=== PATIENT | female | born 1955 | race Caucasian/White ===

== ENCOUNTER → 2016-08-09 | Outpatient (CLI) | payer OTHER ==
[~2016-08-09] MED LIST: ALBU1AER9 INH; ALBUAER INH; ALPR-385 PO; AMPH20TA2 PO; AMPH30TA2 PO; ASCO10003 PO; CYCL10TA6 PO; CYM60 PO; DOXY100C2 PO; EPP3/2 IM; FRCT/ PO; GABA1CAP4 PO; LVQ750 PO; NRT/25 PO; ONDA8TAB6 PO; OXYC1TAB3 PO; PRED20TA PO; RXC/5 PO; S AD PO; ULT50X PO; VLM5CL PO
== END | disposition home or self-care (01) ==
LOC: C.LABSPEC 17:57
PROVIDERS: ATTEND Nurse Practitioner Adult Health
DX: N39.0 Urinary tract infection, site not specified (principal)

== ENCOUNTER → 2016-09-27 | Outpatient (CLI) | payer OTHER | END | disposition home or self-care (01) | LOC: C.LABSPEC 17:06 | PROVIDERS: ATTEND Nurse Practitioner Adult Health | DX: N39.0 Urinary tract infection, site not specified (principal) ==

== ENCOUNTER 2016-11-25 14:01 | Inpatient (IN) | payer OTHER ==
[~2016-11-25] VITALS: Ht 160 cm; Wt 66.0 kg
[~2016-11-25 14:01] MED LIST changes: -ALBUAER INH; -AMPH20TA2 PO; -LVQ750 PO; -ONDA8TAB6 PO; -OXYC1TAB3 PO; -RXC/5 PO
[2016-11-25] MEDS ORDERED: OXYC1TAB3 PO (14:53)
[2016-11-25] MEDS ORDERED: AMPH20TA2 PO (14:53)
[2016-11-25] MEDS ORDERED: ONDA8TAB6 PO (14:53)
--- NOTE | 2016-11-25 15:24 | EMERGENCY ROOM VISIT NOTE ---
History Report prepared by Jorden: David Hopkins Under the Supervision of: Dr. Odalis Ramos D.O. First contact with patient: 14:37 Chief Complaint: ANKLE PAIN Stated Complaint: LEFT ANKLE PROBLEMS, MUSCLE SPASMS History of Present Illness The patient is a 61 year old female who presents to the Emergency Room with complaints of persistent left ankle pain beginning about 9 hours ago. She notes she woke up around 0630 this morning to use the bathroom when her hands began shaking. Khan states she has had shakes and tremors before. She reports spilling water on the floor, losing her balance and inverting her ankle, causing her to fall to the floor. The patient complains of pain on the lateral aspect of her left ankle. She also reports having a cough, and admits to smoking. The patient adds having back pain, and was last at physical therapy 2 days ago for this pain and neck pain. She had an EMG by Dr. Greco 5 days ago. Per the son, her current neuro state is not baseline, and he describes her as "discombobulated". This has happened before but not to this extent. He notes her current word searching is abnormal and new. Her inability to recall the date is also abnormal and new. Source of History: patient, family Onset: about 9 hours ago Position: ankle (left) Quality: other (ankle pain) Timing: other (persistent) Associated Symptoms: + back pain, + cough Review of Systems See HPI for pertinent positives & negatives. A total of 10 systems reviewed and were otherwise negative. Past Medical & Surgical Medical Problems: (1) Adenomatous polyp of colon (2) Chronic pain (3) Clostridium difficile colitis (4) Diverticulosis Colon (W/O Ment Of Hemorrhage) (5) Migraine (6) Spinal Stenosis-Lumbar (7) Tobacco user Surgical Problems: (1) s/p lap cholecystectomy (2) Spinal surgery Family History Patient reports no known family medical history. Social History Smoking Status: Unknown if Ever Smoked Alcohol Use: occasionally Drug Use: none Marital Status: single Housing Status: lives with family Occupation Status: retired Current/Historical Medications Scheduled Amphetamine-Dextroamphetamine 20MG (Adderall 20MG), 20 MG PO BID Ascorbic Acid (Vitamin C), 1 TAB PO DAILY Duloxetine HCl (Duloxetine HCl), 60 MG PO HS Gabapentin (Gabapentin), 600 MG PO BID Nortriptyline Hcl (Pamelor), 3 CAP PO HS S-Adenosylmethionine (Giorgio-E), 1 TAB PO DAILY Scheduled PRN Acetamin/Butalbital/Caffeine (Fioricet), 1 TAB PO Q6H PRN for Headache Albuterol Sulfate (Proventil Hfa), 2 PUFFS INH Q4H PRN for ob/wheeze Alprazolam (Xanax), 1 MG PO BID PRN for Anxiety Cyclobenzaprine Hcl (Flexeril), 10 MG PO TID PRN for Muscle Spasms Epinephrine (Epipen 2-Jorge), 0.3 MG IM UD PRN for ALLERGIC REACTION Ondansetron Hcl (Zofran), 8 MG PO TID PRN for Nausea Tramadol HCl (Tramadol HCl), 50 MG PO Q6 PRN for Pain Allergies Coded Allergies: Baclofen (Verified Allergy, Severe, Confusion, 11/25/16) Reported by PT Neomycin (Verified Allergy, Intermediate, Unsure, 11/25/16) Macrolides (Verified Allergy, Unknown, 11/25/16) Penicillins (Verified Allergy, Unknown, 11/25/16) Physical Exam Vital Signs Date Time Temp Pulse Resp B/P Pulse Ox O2 Delivery O2 Flow Rate FiO2 11/25/16 17:38 94 18 117/77 95 Room Air 11/25/16 16:45 90 18 116/75 97 Nasal Cannula 11/25/16 14:06 37.1 94 18 183/131 86 Room Air Physical Exam HEENT: Head - normocephalic and atraumatic. Pupils are equal, round, and reactive to light. Extraocular eye muscles are intact and sclera are anicteric. Ears - bilaterally patent canals with noninjected tympanic membranes and no evidence of hemotympanum. Nose - moist nasal mucosa without discharge. Mouth - moist buccal mucosa. Oropharynx is nonerythematous and there is no tonsillar exudate or edema noted. Neck: Supple; no JVD, nuchal rigidity, cervical lymphadenopathy, or auscultated bruits. Heart: Regular rate and rhythm. There is a normal S1 and S2 with no murmurs, clicks, or gallops appreciated. Lungs: Clear to auscultation bilaterally with no wheezes, rales, or rhonchi. Abdomen: Soft, completely nontender, nondistended, with good bowel sounds. There are no palpable pulsatile masses or hepatosplenomegaly. There is no guarding, rigidity, or rebound noted. Extremities: Ecchymosis of the base of the left fifth metatarsal and just anterior to the lateral malleolus. There are easily palpable peripheral pulses. Neuro:The patient is awake and alert, oriented to place, no oriented to date. Muscle strength is 5/5 in all 4 extremities. The patient has equal blasting contract man strength and equal pedal push and pull. There are no cerebellar signs. The patient seems to move around the bed and a bizarre way. She is tremulous. Medical Decision & Procedures ER Provider Diagnostic Interpretation: Radiology results as stated below per my review and the radiologist's interpretation: HEAD CT NONCONTRAST Findings: The paranasal sinuses and mastoid air cells are clear. The calvarium and skull base are intact. The ventricles and sulci are within normal limits. There is no mass, hematoma, midline shift, or acute infarct. Impression: No acute intracranial abnormality. Electronically signed by: Ezio Taylor M.D. 11/25/2016 4:29 PM Dictated Date/Time: 11/25/2016 4:27 PM CHEST 2 VIEWS ROUTINE FINDINGS: Mild diffuse interstitial thickening, unchanged. The lungs remain mildly hyperexpanded. No new focal lung consolidations. The heart is stable in size. No pleural effusions. No pneumothorax. Cholecystectomy. Lumbar spinal fusion hardware. Old right clavicle fracture. IMPRESSION: No significant change compared to the prior study. No acute process. Electronically signed by: Ezio Taylor M.D. 11/25/2016 5:00 PM Dictated Date/Time: 11/25/2016 4:57 PM LEFT FOOT MIN 3 VIEWS ROUTINE, LEFT ANKLE MIN 3 VIEWS ROUTINE FINDINGS: No acute fracture or dislocation within the left ankle. Transverse fracture within the base of the fifth metatarsal which extends to the intertarsal region. Therefore, this is consistent with a Sanford fracture. This is nondisplaced. IMPRESSION: Nondisplaced fracture at the base of the fifth metatarsal consistent with a Sanford fracture. No fractures within the left ankle. Electronically signed by: Ezio Taylor M.D. 11/25/2016 4:57 PM Dictated Date/Time: 11/25/2016 4:54 PM LEFT FOOT MIN 3 VIEWS ROUTINE, LEFT ANKLE MIN 3 VIEWS ROUTINE FINDINGS: No acute fracture or dislocation within the left ankle. Transverse fracture within the base of the fifth metatarsal which extends to the intertarsal region. Therefore, this is consistent with a Sanford fracture. This is nondisplaced. IMPRESSION: Nondisplaced fracture at the base of the fifth metatarsal consistent with a Sanford fracture. No fractures within the left ankle. Electronically signed by: Ezio Taylor M.D. 11/25/2016 4:57 PM Dictated Date/Time: 11/25/2016 4:54 PM Laboratory Results Test 11/25/16 17:00 Immature Granulocyte % (Auto) 0.5 % White Blood Count 15.25 K/uL (4.8-10.8) Red Blood Count 4.14 M/uL (4.2-5.4) Hemoglobin 13.9 g/dL (12.0-16.0) Hematocrit 41.8 % (37-47) Mean Corpuscular Volume 101.0 fL (80-100) Mean Corpuscular Hemoglobin 33.6 pg (25-34) Mean Corpuscular Hemoglobin Concent 33.3 g/dl (32-36) Platelet Count 219 K/uL (130-400) Neutrophils (%) (Auto) 77.4 % Lymphocytes (%) (Auto) 16.2 % Monocytes (%) (Auto) 5.6 % Eosinophils (%) (Auto) 0.1 % Basophils (%) (Auto) 0.2 % Neutrophils # (Auto) 11.81 K/uL (1.4-6.5) Lymphocytes # (Auto) 2.47 K/uL (1.2-3.4) Monocytes # (Auto) 0.85 K/uL (0.11-0.59) Eosinophils # (Auto) 0.01 K/uL (0-0.5) Basophils # (Auto) 0.03 K/uL (0-0.2) Immature Granulocyte # (Auto) 0.08 K/uL (0.00-0.02) Prothrombin Time 9.8 SECONDS (9.0-12.0) Prothromb Time International Ratio 0.9 (0.9-1.1) Activated Partial Thromboplast Time 30.5 SECONDS (21.0-31.0) Partial Thromboplastin Ratio 1.2 Osmolality 295 mOsm/kg (280-300) Total Bilirubin 0.2 mg/dl (0.2-1) Aspartate Amino Transf (AST/SGOT) 21 U/L (15-37) Alanine Aminotransferase (ALT/SGPT) 23 U/L (12-78) Alkaline Phosphatase 115 U/L (45-117) Total Protein 7.6 gm/dl (6.4-8.2) Albumin 3.8 gm/dl (3.4-5.0) Globulin 3.8 gm/dl (2.5-4.0) Albumin/Globulin Ratio 1.0 (0.9-2) Thyroid Stimulating Hormone (TSH) 0.742 uIu/ml (0.300-4.500) Laboratory results per my review. Procedure IV lock initiation IV normal saline hydration ECG Indication: other (ankle pain) Rate (beats per minute): 93 Rhythm: normal sinus Findings: no acute ischemic change, no ectopy ED Course 1508: Past medical records reviewed. The patient was evaluated in room A4B. A complete history and physical exam was performed. An IV lock was initiated and labs are drawn as above. The patient went for CT scan of the brain as described above. 1656: I reassessed the patient. She had a chest x-ray because she was noted to be hypoxic. . She also had an x-ray of her left foot as described above. 1725: Discussed the patient's case Dr. Mora. The patient will be evaluated for further management. 1750: The patient's chemistries came back and she appears to be in renal failure with a creatinine of 6.3. She was placed on IV normal saline therapy. I discussed the case with the patient as well as Dr. Mora Medical Decision The patient is a 61 year old female who presents to the Emergency Room with complaints of persistent left ankle pain beginning about 9 hours ago. Differential Diagnoses: Ankle fracture, 5th metatarsal fracture, pneumonia, acute stroke, and head bleed. Laboratory Interpretations: White count of 15.2; stable H&H; creatinine 6.3; BUN is 62; TSH is 0.7; LFTs are normal. Patient suffered an injury to her left ankle during an inversion injury earlier today. However, the patient's mental status seems to be altered according to the patient and her son. CT scan of the brain was unremarkable. The patient was noted to be hypoxic during her emergency department stay. She was placed in supplemental oxygen. Chest x-ray was obtained. Unfortunately the patient' s creatinine has drastically elevated to 6.3. This is consistent with acute renal failure. Patient has a fifth metatarsal fracture. She was placed in a postop shoe. I discussed the case with the [facility] Hospitalist and they will evaluate for further management. Consults Time Called: 1655 Consulting Physician: Dr. Mora natividad Returned Call: 1725 Discussed the patient's case Dr. Mora. The patient will be evaluated for further management. Impression Primary Impression: Acute renal failure (ARF) Additional Impressions: Hypoxia Altered mental status Fracture of fifth metatarsal bone of left foot Scribe Attestation The scribe's documentation has been prepared under my direction and personally reviewed by me in its entirety. I confirm that the note above accurately reflects all work, treatment, procedures, and medical decision making performed by me. Departure Information Dispostion Being Evaluated By Hospitalist Referrals No Doctor, Assigned (PCP) Patient Instructions [facility] Problem Qualifiers
--- NOTE | 2016-11-25 16:31 | DIAGNOSTIC IMAGING REPORT ---
HEAD CT NONCONTRAST CT DOSE: 614.27 mGy.cm HISTORY: Fall. Head injury. Altered mental status. TECHNIQUE: Multiaxial CT images of the head were performed without the use of intravenous contrast. Automated exposure control was utilized for this study. Comparison: Head CT 08/20/2015. Findings: The paranasal sinuses and mastoid air cells are clear. The calvarium and skull base are intact. The ventricles and sulci are within normal limits. There is no mass, hematoma, midline shift, or acute infarct. Impression: No acute intracranial abnormality. Electronically signed by: Ezio Taylor M.D. 11/25/2016 4:29 PM Dictated Date/Time: 11/25/2016 4:27 PM
--- NOTE | 2016-11-25 16:58 | DIAGNOSTIC IMAGING REPORT ---
LEFT FOOT MIN 3 VIEWS ROUTINE, LEFT ANKLE MIN 3 VIEWS ROUTINE CLINICAL HISTORY: Left ankle and left foot pain. COMPARISON STUDY: None. FINDINGS: No acute fracture or dislocation within the left ankle. Transverse fracture within the base of the fifth metatarsal which extends to the intertarsal region. Therefore, this is consistent with a Sanford fracture. This is nondisplaced. IMPRESSION: Nondisplaced fracture at the base of the fifth metatarsal consistent with a Sanford fracture. No fractures within the left ankle. Electronically signed by: Ezio Taylor M.D. 11/25/2016 4:57 PM Dictated Date/Time: 11/25/2016 4:54 PM
--- NOTE | 2016-11-25 17:01 | DIAGNOSTIC IMAGING REPORT ---
CHEST 2 VIEWS ROUTINE HISTORY: cough/smoker COMPARISON: Chest 04/17/2016. FINDINGS: Mild diffuse interstitial thickening, unchanged. The lungs remain mildly hyperexpanded. No new focal lung consolidations. The heart is stable in size. No pleural effusions. No pneumothorax. Cholecystectomy. Lumbar spinal fusion hardware. Old right clavicle fracture. IMPRESSION: No significant change compared to the prior study. No acute process. Electronically signed by: Ezio Taylor M.D. 11/25/2016 5:00 PM Dictated Date/Time: 11/25/2016 4:57 PM
[2016-11-25 17:22] LABS: BASO % 0.2 %; BASO ABS # 0.03 K/uL (0-0.2); COMPLETE YES; EOS % 0.1 %; HEMATOCRIT 41.8 % (37-47); IG% 0.5 %; LYMPH % 16.2 %; LYMPH ABS # 2.47 K/uL (1.2-3.4); MEAN CORPUSCULAR HEMOGLOBIN 33.6 pg (25-34); MEAN CORPUSCULAR HGB CONC 33.3 g/dl (32-36); MONO % 5.6 %; NEUT % 77.4 %; PLATELET COUNT 219 K/uL (130-400); RED BLOOD COUNT 4.14 M/uL (4.2-5.4); WHITE BLOOD COUNT 15.25 K/uL (4.8-10.8)
[2016-11-25 17:47] LABS: BUN/CREATININE RATIO 9.8 (10-20); CALCIUM 8.9 mg/dl (8.5-10.1); CREATININE 6.3 mg/dl (0.60-1.20); POTASSIUM 4.5 mmol/L (3.5-5.1); THYROID STIMULATING HORMONE 0.742 uIu/ml (0.300-4.500)
[2016-11-25] MEDS ORDERED: ALBUAER INH (18:43)
[2016-11-25] MEDS ORDERED: ACETAMINOPHEN 325 MG TAB PO PRN (19:00)
[2016-11-25] MEDS ORDERED: ALBUT/IPRATROP 3MG/0.5MG NEB 3 ML VIAL INH PRN (19:00)
[2016-11-25] MEDS ORDERED: ONDANSETRON INJ 2 MG/ML 2 ML VIAL IV PRN (19:00)
[2016-11-25] MEDS ORDERED: ALPRAZOLAM 0.5 MG TAB PO PRN (19:15)
[2016-11-25] MEDS ORDERED: TRAMADOL HCL 50 MG TAB PO PRN (19:15)
[2016-11-25] MEDS ORDERED: CYCLOBENZAPRINE HCL 10 MG TAB PO PRN (19:15)
--- NOTE | 2016-11-25 19:39 | History and Physical ---
History & Physical Date & Time of Service: Nov 25, 2016 at 19:01 Chief Complaint: Left Ankle Problems, Muscle Spasms Primary Care Physician: Thomas Stokes M.D. History of Present Illness Source: patient, family, clinic records, hospital records Patient seen and examined. 61 year old female with PMHx of tobacco abuse, depression, chronic back pain, and currently being workedup for a movement disorder presents to the ED complaining of left ankle pain following a fall this morning. Patient reports that her her "muscle twitching" was worse than normal this morning. She states she was trying to get a glass of water but spilled it all over the floor d/t uncontrolled movements. She states she then rolled her left ankle when she step in the water and fell to the ground. She tried to use her cell phone to call her son to help her but had difficulty using the phone because of her muscle twitching. She then realized that she couldn't remember her son's phone number to dial it. She states she eventually got a hold of him and he brought her to the ED for further evaluation. He reports that the patient is very different from baseline and having issues with word finding and confusion that she has never had before. Patient also complaining of a cough and congestion. She states she is unable to cough up sputum but she feels it is there. She feels a little more SOB than baseline. She states she has been taking Mucinex for this. She also reports urinary issues. She states d/t her chronic back pain when she has back pain she has urinary retention. She states she has not urinated since yesterday. She states when she does go it is dark urine. She reports that she takes Ibuprofen 600mg TID for the back pain. She denies fevers, chills, chest pain, nausea, vomiting, diarrhea, calf pain and edema. She denies head trauma and LOC. She is currently seeing Dr. Greco to be worked up for a movement disorder and had an EMG as an outpatient. She states she did not take her medications today. In the ED patient was initially hypertensive but BP has normalized with out intervention. She is hypoxic on RA. She has a WBC count of 15K, and her crea is 6.3. She also has a left 5th metatarsal fracture. She will be admitted for further workup and treatment. Past Medical/Surgical History Medical Problems: (1) Adenomatous polyp of colon Status: Resolved (2) Chronic pain Status: Chronic (3) Clostridium difficile colitis Status: Resolved (4) Diverticulosis Colon (W/O Ment Of Hemorrhage) Status: Chronic (5) Migraine Status: Chronic (6) Spinal Stenosis-Lumbar Status: Chronic (7) Tobacco user Status: Chronic Surgical Problems: (1) s/p lap cholecystectomy Status: Resolved (2) Spinal surgery Status: Resolved Family History Patient reports no known family medical history. Social History Smoking Status: Current Every Day Smoker Alcohol Use: none Drug Use: none Marital Status: single Housing status: lives alone Occupational Status: retired Immunizations History of Influenza Vaccine: No History of Tetanus Vaccine?: No History of Pneumococcal: Yes Pneumococcal Date: Nov 17, 2008 History of Hepatitis B Vaccine: No Multi-Drug Resistant Organisms History of MDRO: No Allergies Coded Allergies: Baclofen (Verified Allergy, Severe, Confusion, 11/25/16) Reported by PT Neomycin (Verified Allergy, Intermediate, Unsure, 11/25/16) Macrolides (Verified Allergy, Unknown, 11/25/16) Penicillins (Verified Allergy, Unknown, 11/25/16) Home Medications Scheduled Amphetamine-Dextroamphetamine 20MG (Adderall 20MG), 20 MG PO BID Ascorbic Acid (Vitamin C), 1 TAB PO DAILY Duloxetine HCl (Duloxetine HCl), 60 MG PO HS Gabapentin (Gabapentin), 600 MG PO BID Nortriptyline Hcl (Pamelor), 3 CAP PO HS S-Adenosylmethionine (Giorgio-E), 1 TAB PO DAILY Scheduled PRN Acetamin/Butalbital/Caffeine (Fioricet), 1 TAB PO Q6H PRN for Headache Albuterol Sulfate (Proventil Hfa), 2 PUFFS INH Q4H PRN for ob/wheeze Alprazolam (Xanax), 1 MG PO BID PRN for Anxiety Cyclobenzaprine Hcl (Flexeril), 10 MG PO TID PRN for Muscle Spasms Epinephrine (Epipen 2-Jorge), 0.3 MG IM UD PRN for ALLERGIC REACTION Ondansetron Hcl (Zofran), 8 MG PO TID PRN for Nausea Tramadol HCl (Tramadol HCl), 50 MG PO Q6 PRN for Pain Review of Systems Constitutional: No chills, No fever, No weight loss Eyes: No worsening of vision ENT: + nasal symptoms Respiratory: + cough, + shortness of breath, + sputum, + wheezing Cardiovascular: No chest pain, No edema, No palpitations Abdomen: No constipation, No diarrhea, No nausea, No pain, No vomiting Musculoskeletal: + joint pain, + muscle pain, No calf pain, No swelling Genitourinary - Female: + urinary retention, No dysuria Neurologic: + balance problems, + problem reported (involuntary movements ), No numbness/tingling, No vertigo Psychiatric: No anxiety, No insomnia Endocrine: No fatigue Hematologic / Lymphatic: No abnormal bleeding/bruising, No clotting problems Integumentary: No itch, No rash Allergic / Immunologic: No environmental allergies Physical Exam Vital Signs Date Time Temp Pulse Resp B/P Pulse Ox O2 Delivery O2 Flow Rate FiO2 11/25/16 17:38 94 18 117/77 95 Room Air 11/25/16 16:45 90 18 116/75 97 Nasal Cannula 11/25/16 14:06 37.1 94 18 183/131 86 Room Air General Appearance: + pertinent finding (WD/WN 61 year old female lying in bed in NAD with son at bedside ) Head: normocephalic, atraumatic Eyes: PERRL, EOMI, sclerae normal ENT: hearing grossly normal, pharynx normal Neck: supple, no JVD Respiratory/Chest: chest non-tender, no respiratory distress, no accessory muscle use, + rhonchi, + wheezing, + pertinent finding (coarse breath sounds throughout ) Cardiovascular: regular rate, rhythm, no edema, no gallop, no JVD, no murmur, normal peripheral pulses Abdomen/GI: normal bowel sounds, non tender, soft Back: normal inspection, no CVA tenderness Extremities/Musculoskelatal: no calf tenderness, normal capillary refill, no pedal edema Neurologic/Psych: + pertinent finding (A&Ox3, some word finding and recall issues,tangential speech, tremor noted, appears restless possibly some involuntary movements ) Skin: normal color, warm/dry, no rash Lymphatic: no adenopathy Diagnostics Laboratory Results Results Past 24 Hours Test 11/25/16 17:00 11/25/16 18:34 Range/Units White Blood Count 15.25 4.8-10.8 K/uL Red Blood Count 4.14 4.2-5.4 M/uL Hemoglobin 13.9 12.0-16.0 g/dL Hematocrit 41.8 37-47 % Mean Corpuscular Volume 101.0 80-100 fL Mean Corpuscular Hemoglobin 33.6 25-34 pg Mean Corpuscular Hemoglobin Concent 33.3 32-36 g/dl Platelet Count 219 130-400 K/uL Neutrophils (%) (Auto) 77.4 % Lymphocytes (%) (Auto) 16.2 % Monocytes (%) (Auto) 5.6 % Eosinophils (%) (Auto) 0.1 % Basophils (%) (Auto) 0.2 % Neutrophils # (Auto) 11.81 1.4-6.5 K/uL Lymphocytes # (Auto) 2.47 1.2-3.4 K/uL Monocytes # (Auto) 0.85 0.11-0.59 K/uL Eosinophils # (Auto) 0.01 0-0.5 K/uL Basophils # (Auto) 0.03 0-0.2 K/uL Immature Granulocyte % (Auto) 0.5 % Immature Granulocyte # (Auto) 0.08 0.00-0.02 K/uL Sodium Level 135 136-145 mmol/L Potassium Level 4.5 3.5-5.1 mmol/L Chloride Level 102 98-107 mmol/L Carbon Dioxide Level 21 21-32 mmol/L Anion Gap 12.0 3-11 mmol/L Blood Urea Nitrogen 62 7-18 mg/dl Creatinine 6.30 0.60-1.20 mg/dl Est Creatinine Clear Calc Drug Dose 8.3 ml/min Estimated GFR () 7.6 Estimated GFR (Non- 6.5 BUN/Creatinine Ratio 9.8 10-20 Random Glucose 135 70-99 mg/dl Calcium Level 8.9 8.5-10.1 mg/dl Total Bilirubin 0.2 0.2-1 mg/dl Aspartate Amino Transf (AST/SGOT) 21 15-37 U/L Alanine Aminotransferase (ALT/SGPT) 23 12-78 U/L Alkaline Phosphatase 115 45-117 U/L Total Protein 7.6 6.4-8.2 gm/dl Albumin 3.8 3.4-5.0 gm/dl Globulin 3.8 2.5-4.0 gm/dl Albumin/Globulin Ratio 1.0 0.9-2 Thyroid Stimulating Hormone (TSH) 0.742 0.300-4.500 uIu/ml Diagnostic Radiology L FOOT XR Per radiologist read: IMPRESSION: Nondisplaced fracture at the base of the fifth metatarsal consistent with a Sanford fracture. No fractures within the left ankle. LEFT ANKLE XR Per radiologist read: IMPRESSION: Nondisplaced fracture at the base of the fifth metatarsal consistent with a Sanford fracture. No fractures within the left ankle. CXR Per radiologist read: IMPRESSION: No significant change compared to the prior study. No acute process. CT HEAD Per radiologist read: Impression: No acute intracranial abnormality. EKG NSR, incomplete RBBB 93 BPM, QTc 405 Impression Assessment and Plan 61 year old female presented to the ED complaining of left ankle pain, found to have Sanford fracture. Patient was also hypoxic and appeared to be altered. CT head was done and negative. Lab work revealed a crea of 6.3 and leukocytosis . ACUTE RENAL FAILURE -Admit to tele -? cause patient reports chronic NSAID use 600mg TID regularly, also reports urinary retention, ? obstruction, ? dehydration and other etiologies -Crea 6.3, BUN 62, last lab work over 1 year ago and normal -Lytes stable -Does appear slightly hypovolemic, will gently hydrate with IVFs -hold NSAIDs, avoid other nephrotoxic agents -Renal US pending to r/o obstruction -check UA, urine sodium,crea, osm -Nephrology consult placed for further input -CBC, PRP, Mg in AM ACUTE HYPOXIA -Sats in the 80s on RA, CXR without consolidation, WBC count 15K -Reports ongoing cough, congestion, SOB -Likely acute bronchitis with possible underlying COPD in setting of continued tobacco abuse -Check ABG -Empirically treat with Doxycycline po -Prednisone 40mg po daily -Duonebs prn -supplemental oxygen as need -CBC in AM ALTERED MENTAL STATUS -CT head negative -? secondary to hypoxia, uremia, infection, polypharmacy and other etiologies -Check ABG to r/o CO2 retention -Empirically treat for acute bronchitis -ARF management as outlined above -Will continue home medications for now to avoid withdrawal likely will need multispecialty team effort to deescalate medications LEFT 5TH METATARSAL FRACTURE -continue with Boot -Orthopedic consult placed for further management regarding weight baring status etc -once okay with ortho will order PT/OT URINARY RETENTION -Has seen [facility] in the past and had urodynamics completed -Straight cath with 600cc urine output -UA pending -Urology consult for further workup MOVEMENT DISORDER -Follows with Dr. Greco -fall precautions -had recent EMGs unsure of results -consult placed for further management CHRONIC BACK PAIN -Continue Flexeril, Oxycodone, Tramadol, Gabapentin MOOD DISORDER -continue Cymbalta, Nortriptyline, Adderall, Xanax TOBACCO ABUSE -Cessation counseling given DVT PROPHYLAXIS: Sq heparin CODE STATUS: FULL CODE DISPO:In my clinical judgment this beneficiary meets acute admission criteria, established by [facility], that includes being hospitalized through two midnights. Patient seen in collaboration with Dr. Mora VTE Prophylaxis VTE Risk Assessment Done? Y/N: Yes Risk Level: Moderate Given or contraindicated: Unfractionated heparin SQ Note ATTENDING ADDENDUM Record reviewed. Patient interviewed and examined in ED. Care coordinated with Molly Fleming PA-C. Please refer to her documentation for patient's history. Briefly, 61 YO female with history of chronic pain, migraine headaches, and other problems as noted. Takes ibuprofen for chronic pain. Undergoing neuro evaluation for severe tremors. Recent falls due to weakness and poor balance. Fell and injured her left foot. Has been somewhat confused and has had a cough with chest congestion. Recent problems with voiding. Has been seen by Urology. Urodynamic testing performed in clinic. EXAM: General- no acute distress VS- as noted Head- atraumatic Eyes- PERRL, EOMI; anicteric ENT- oral mucosa dry Neck- supple; no JVD Lungs- bilateral rhonchi, diffuse wheezing Heart- RRR, no murmur, gallop, or rub appreciated Abdomen- + BS, soft, nontender Extremities- no pretibial edema or calf tenderness; ecchymosis and tenderness left foot Neuro- alert, somewhat confused, somewhat tangential; resting tremor; motor strength grossly intact; plantar reflexes downgoing DATA: Lab studies as noted. CXR- no infiltrates or CHF. X-ray left foot- nondisplaced fracture left fifth metatarsal. CT head- neg. EKG performed at 15:28 reviewed and demonstrated NSR at 90 / minute, incomplete RBBB inverted T-waves III. . ASSESSMENT AND PLAN: ACUTE KIDNEY INJURY Serum creatinine 6. ROXANNE, etiology uncertain. No acute need for hemodialysis. Utilizes ibuprofen on regular basis- DC all NSAID's. Urinary retention- consider obstructive uropathy. Check FE Na and renal US. Consult Nephrology. URINARY RETENTION Has had problems with urinary retention, evaluated by [facility]. 600 ml urine per straight cath in ED. Check renal US. Consult Urology. POSSIBLE UTI Urine cloudy in ED. Experiencing urinary retention, but no dysuria. Afebrile. WBC 15,000. Check urine C&S. Allergic to penicillins and nitrofurantoin. Rx with levofloxacin pending cultures. TREMOR / CONFUSION ? due to uremia. Has seen [facility] Neurology and had recent EMG- ? results. Consult Neuro. LEFT 5th METATARSAL FRACTURE Consult Ortho. AMBULATORY DYSFUNCTION PT / OT evals. POLYPHARMACOLOGY May be appropriate to try to taper meds, but will require coordination of care with all involved specialties. Please refer to CT Fleming's documentation for discussion of other issues. Stephen Mora MD .
[2016-11-25 20:00] LABS: ARTERIAL BLD GAS O2 SATURATION 91.7 % (90-95); ARTERIAL BLOOD GAS HCO3 20 mmol/L (19-24); ARTERIAL BLOOD GAS PO2 70 mm/Hg (80-95); ARTERIAL BLOOD GAS pH 7.26 (7.35-7.45)
[2016-11-25 20:05] LABS: URINE APPEARANCE TURBID (CLEAR); URINE BILIRUBIN NEG (NEG); URINE COLOR YELLOW; URINE NITRITE NEG (NEG); URINE PH 5.5 (4.5-7.5); URINE SPECIFIC GRAVITY 1.015 (1.000-1.030); UROBILINOGEN NEG (NEG); ZZURINE CULT IF INDIC CATH YES
[2016-11-25 20:05] LABS: ALLEN TEST POS (POS); O2 ADMINISTRATION 3%
[2016-11-25 20:06] LABS: MANUAL MICROSCOPIC REQUIRED? NO; REVIEW REQ? YES
[2016-11-25 21:00] VITALS: BP 161/89; PULSE 78; TEMP 37.1; O2SAT 97; Ht 160 cm; Wt 66.0 kg
[2016-11-25] MEDS ORDERED: AMPHETAMINE ASP/SULF/DEXTRAMPH 10 MG TAB PO SCH (21:00)
[2016-11-25] MEDS ORDERED: DOXYCYCLINE HYCLATE 100 MG CAP PO SCH (21:00)
[2016-11-25] MEDS ORDERED: NORTRIPTYLINE HCL 25 MG CAP PO SCH (21:00)
[2016-11-25] MEDS ORDERED: GABAPENTIN 600 MG TAB PO SCH (21:00)
[2016-11-25] MEDS ORDERED: DULOXETINE HCL 60 MG CAP PO SCH (21:00)
[2016-11-25 21:57] LABS: INR 0.9 (0.9-1.1); PARTIAL THROMBOPLASTIN RATIO 1.2; PROTHROMBIN TIME (PATIENT) 9.8 SECONDS (9.0-12.0)
[2016-11-25] MEDS: SODIUM CHLORIDE 0.9% 1000ML 1,000 ML IV SCH (22:36)
[2016-11-25 23:26] VITALS: BP 138/83; PULSE 97; TEMP 37.7; O2SAT 90
[2016-11-26] VITALS (11 sets, daily range): BP systolic 93–133; BP diastolic 61–82; PULSE 69–97; TEMP 36.4–37; O2SAT 90–96
[2016-11-26] MEDS: SODIUM CHLORIDE 0.9% 1000ML 1,000 ML IV SCH ×3 (05:54→19:50)
[2016-11-26] MEDS: HEPARIN SOD 5000 UNIT/0.5 ML CARP SQ SCH ×4 (05:55→22:00)
[2016-11-26] MEDS ORDERED: LEVOFLOXACIN IV SCH (06:00)
[2016-11-26] MEDS ORDERED: PREMIXED IV SCH (06:00)
[2016-11-26] MEDS ORDERED: D5W IV SCH (06:00)
[2016-11-26] MEDS ORDERED: [UNRECOGNIZED DRUG - OTHER] IV SCH (06:00)
[2016-11-26 06:03] LABS: HEMATOCRIT 39.3 % (37-47); MEAN CELL VOLUME 99.7 fL (80-100); MEAN CORPUSCULAR HEMOGLOBIN 33.2 pg (25-34); MEAN CORPUSCULAR HGB CONC 33.3 g/dl (32-36); MEAN PLATELET VOLUME 8.5 fL (7.4-10.4); PLATELET COUNT 204 K/uL (130-400); RED BLOOD COUNT 3.94 M/uL (4.2-5.4); WHITE BLOOD COUNT 11.09 K/uL (4.8-10.8)
[2016-11-26 06:52] LABS: BUN/CREATININE RATIO 10.7 (10-20); CALCIUM 8.6 mg/dl (8.5-10.1); CREATININE 5.8 mg/dl (0.60-1.20); MAGNESIUM 2.6 mg/dl (1.8-2.4); POTASSIUM 4.6 mmol/L (3.5-5.1)
[2016-11-26] MEDS ORDERED: LEVOFLOXACIN 750MG / D5W IV ONE (07:00)
--- NOTE | 2016-11-26 07:37 | DIAGNOSTIC IMAGING REPORT ---
RENAL ULTRASOUND CLINICAL HISTORY: Acute renal failure. COMPARISON STUDY: Renal ultrasound July 10, [address] of the abdomen and pelvis May 05, 2015. TECHNIQUE: Sonography of the kidneys and the urinary bladder was performed. FINDINGS: There is no hydronephrosis. Renal echogenicity is increased. The right kidney measures 10 x 5.4 x 4.3 cm and the left measures 9 x 4.5 x 4.4 cm. Renal cortical thickness and size are normal. Both ureteral jets were identified. IMPRESSION: 1. No hydronephrosis. 2. Increased renal echogenicity suggestive of medical renal disease. Electronically signed by: Nitin Ho M.D. 11/26/2016 7:36 AM Dictated Date/Time: 11/26/2016 7:35 AM
[2016-11-26] MEDS ORDERED: NURSING VERBAL MED ORDER ONE ×5 (08:03→08:30)
[2016-11-26] MEDS ORDERED: HALOPERIDOL LACTATE 5 MG/ML 1 ML VIAL ONE (08:03)
[2016-11-26] MEDS ORDERED: LORAZEPAM 2 MG/ML 1 ML VIAL ONE (08:16)
[2016-11-26] MEDS ORDERED: LORAZEPAM 2 MG/ML 1 ML VIAL IM ONE (08:30)
[2016-11-26] MEDS ORDERED: OLANZAPINE 10 MG/2.1 ML SDV IM ONE (08:30)
[2016-11-26] MEDS: ASCORBIC ACID 500 MG TAB PO SCH (09:00)
[2016-11-26] MEDS ORDERED: S ADENOSYLMETHIONINE PO SCH (09:00)
--- NOTE | 2016-11-26 09:09 | Progress Note ---
Medicine Progress Note Date & Time of Visit: Nov 26, 2016 at 08:54. Subjective patient apparently was apparently cooperative earlier until this morning when RN assessed her, patient was sleeping but when awoken, noted to be disoriented, then became agitated, combative, pulled out IV site code reynaldo called, at least 4 persons needed to hold patient given IM haldol, ativan, zyprexa patient gradually became calmer, but was still disoriented not in distress, speaks in sentences with no effort, no accessory muscle use denies dyspnea, chest pain, nausea, abdominal pain still has cough, non productive Objective Last 8 Hrs Date Time Temp Pulse Resp B/P Pulse Ox O2 Delivery O2 Flow Rate FiO2 11/26/16 07:56 94 118/65 11/26/16 07:39 36.4 76 18 93/61 90 2.0 11/26/16 04:06 37.0 97 17 128/77 90 Nasal Cannula 3.0 11/26/16 04:00 Nasal Cannula 3.0 Physical Exam: In my clinical judgment this beneficiary meets acute admission criteria, established by [facility], that includes being hospitalized through two midnights. Laboratory Results: Last 24 Hours Test 11/25/16 17:00 11/25/16 18:58 11/25/16 19:43 11/26/16 05:49 White Blood Count 15.25 K/uL 11.09 K/uL Red Blood Count 4.14 M/uL 3.94 M/uL Hemoglobin 13.9 g/dL 13.1 g/dL Hematocrit 41.8 % 39.3 % Mean Corpuscular Volume 101.0 fL 99.7 fL Mean Corpuscular Hemoglobin 33.6 pg 33.2 pg Mean Corpuscular Hemoglobin Concent 33.3 g/dl 33.3 g/dl Platelet Count 219 K/uL 204 K/uL Neutrophils (%) (Auto) 77.4 % Lymphocytes (%) (Auto) 16.2 % Monocytes (%) (Auto) 5.6 % Eosinophils (%) (Auto) 0.1 % Basophils (%) (Auto) 0.2 % Neutrophils # (Auto) 11.81 K/uL Lymphocytes # (Auto) 2.47 K/uL Monocytes # (Auto) 0.85 K/uL Eosinophils # (Auto) 0.01 K/uL Basophils # (Auto) 0.03 K/uL Immature Granulocyte % (Auto) 0.5 % Immature Granulocyte # (Auto) 0.08 K/uL Prothrombin Time 9.8 SECONDS Prothromb Time International Ratio 0.9 Activated Partial Thromboplast Time 30.5 SECONDS Partial Thromboplastin Ratio 1.2 Sodium Level 135 mmol/L 135 mmol/L Potassium Level 4.5 mmol/L 4.6 mmol/L Chloride Level 102 mmol/L 102 mmol/L Carbon Dioxide Level 21 mmol/L 20 mmol/L Anion Gap 12.0 mmol/L 13.0 mmol/L Blood Urea Nitrogen 62 mg/dl 62 mg/dl Creatinine 6.30 mg/dl 5.80 mg/dl Est Creatinine Clear Calc Drug Dose 8.3 ml/min 8.3 ml/min Estimated GFR () 7.6 8.3 Estimated GFR (Non- 6.5 7.2 BUN/Creatinine Ratio 9.8 10.7 Random Glucose 135 mg/dl 139 mg/dl Osmolality 295 mOsm/kg Calcium Level 8.9 mg/dl 8.6 mg/dl Total Bilirubin 0.2 mg/dl Aspartate Amino Transf (AST/SGOT) 21 U/L Alanine Aminotransferase (ALT/SGPT) 23 U/L Alkaline Phosphatase 115 U/L Total Protein 7.6 gm/dl Albumin 3.8 gm/dl Globulin 3.8 gm/dl Albumin/Globulin Ratio 1.0 Thyroid Stimulating Hormone (TSH) 0.742 uIu/ml Urine Color YELLOW Urine Appearance TURBID Urine pH 5.5 Urine Specific [place] 1.015 Urine Protein TRACE Urine Glucose (UA) NEG Urine Ketones NEG Urine Occult Blood NEG Urine Nitrite NEG Urine Bilirubin NEG Urine Urobilinogen NEG Urine Leukocyte Esterase MODERATE Urine WBC (Auto) >30 /hpf Urine RBC (Auto) 0-4 /hpf Urine Hyaline Casts (Auto) 0 /lpf Urine Epithelial Cells (Auto) 5-10 /lpf Urine Bacteria (Auto) 2+ Urine Crystals AMORPHOUS SEDIMENT Urine Osmolality 297 mOms/kg Urine Random Creatinine 140.0 mg/dl Urine Random Sodium 19 mEq/L Arterial Blood pH 7.26 Arterial Blood Partial Pressure CO2 45 mmHg Arterial Blood Partial Pressure O2 70 mm/Hg Arterial Blood HCO3 20 mmol/L Arterial Blood Oxygen Saturation 91.7 % Arterial Blood Base Excess -7.0 mEq/L Arterial Blood Gas Delivery 3% Michael Test POS RDW Standard Deviation 50.4 fL RDW Coefficient of Variation 13.8 % Mean Platelet Volume 8.5 fL Magnesium Level 2.6 mg/dl 25-Hydroxy Vitamin D Total 15.0 ng/ml Test 11/26/16 08:08 Bedside Glucose 128 mg/dl Date/Time Source Procedure Growth Status 11/25/16 18:58 Urine,Catheterized Urine Culture Pending Received Assessment & Plan 61 year old female with history of smoking, chronic back pain, mood disorder presenting with left foot pain. ACUTE RENAL FAILURE -? cause patient reports chronic NSAID use 600mg TID regularly, also reports urinary retention, ? obstruction, ? dehydration and other etiologies - renal us: 1. No hydronephrosis. 2. Increased renal echogenicity suggestive of medical renal disease. - crea 6.3 to 5.8 - (+) delirium this morning uremic encephalopathy? - continue IV fluids Nephrology consulted ACUTE HYPOXIC RESPIRATORY FAILURE, LIKELY FROM ACUTE COPD EXACERBATION FROM ACUTE BRONCHITIS - cxr: no signs of pneumonia - remains on 2 liters by DE - hold Levaquin as patient was delirious this AM - change to Doxycycline IV nebs hold Prednisone- no wheezing, delirious ALTERED MENTAL STATUS -CT head negative -? secondary to hypoxia, uremia, infection, polypharmacy and other etiologies - (+) acute delirious episode this AM from Psych meds in the setting of Acute renal failure? hold all Psych meds, other meds that may cause delirium, Psych consulted from Uremic Encephalopathy? from Underlying Infection- UTI, Bronchitis? urine culture, blood cultures, empiric Ceftri + Doxy - repeat CT head one to one obs for now LEFT 5TH METATARSAL FRACTURE -continue with Boot - ortho consulted URINARY RETENTION -Urology consult for further workup MOVEMENT DISORDER -Follows with Dr. Greco -fall precautions -had recent EMGs unsure of results -consult placed for further management CHRONIC BACK PAIN -usually on Flexeril, Oxycodone, Tramadol, Gabapentin -hold above secondary to acute delirium MOOD DISORDER -usually on Cymbalta, Nortriptyline, Adderall, Xanax - -hold above secondary to acute delirium TOBACCO ABUSE -Cessation counseling given DVT PROPHYLAXIS: Sq heparin CODE STATUS: FULL CODE DISPO: pending Current Inpatient Medications: Current Inpatient Medications Medications (Trade) Dose Ordered Sig/Mynor Route Start Time Stop Time Status Last Admin Dose Admin Heparin Sodium (Porcine) (Heparin Sq 5000 Unit/0.5ml) 5,000 unit Q8H SQ 11/26/16 06:00 12/26/16 05:59 Acetaminophen (Tylenol Tab) 650 mg Q4H PRN PO 11/25/16 19:00 12/25/16 18:59 Ondansetron HCl (Zofran Inj) 4 mg Q6H PRN IV 11/25/16 19:00 12/25/16 18:59 Prednisone (PredniSONE TAB) 40 mg DAILY PO 11/26/16 09:00 12/26/16 08:59 Albuterol/ Ipratropium 3 ml 3 ml Q4R PRN INH 11/25/16 19:00 12/25/16 18:59 Sodium Chloride (Nss 1000ml) 1,000 ml @ 100 mls/hr Q10H IV 11/25/16 19:15 12/25/16 19:14 11/26/16 05:54 100 MLS/HR Alprazolam (Xanax Tab) 1 mg BID PRN PO 11/25/16 19:15 12/25/16 19:14 Amphetamine Aspartate/ Amphetam Sulf (Amphetamine Aspartate/Amph Sulf/Dextramphet) 20 mg BID PO 11/25/16 21:00 12/09/16 20:59 Cyclobenzaprine HCl (Flexeril Tab) 10 mg TID PRN PO 11/25/16 19:15 12/25/16 19:14 11/25/16 22:42 10 MG Duloxetine HCl (Cymbalta Cap) 60 mg HS PO 11/25/16 21:00 12/25/16 20:59 11/25/16 22:42 60 MG Gabapentin (Neurontin Tab) 600 mg BID PO 11/25/16 21:00 12/25/16 20:59 11/25/16 22:40 600 MG Nortriptyline HCl (Pamelor Cap) 75 mg HS PO 11/25/16 21:00 12/25/16 20:59 11/25/16 22:41 75 MG Tramadol HCl (Ultram Tab) 50 mg Q6 PRN PO 11/25/16 19:15 12/25/16 19:14 Ascorbic Acid 1000 mg 1,000 mg DAILY PO 11/26/16 09:00 12/26/16 08:59 Levofloxacin/Prmx (Levaquin / D5W/ Premixed D5W) 100 ml @ 100 mls/hr UD IV 11/26/16 06:00 11/26/16 08:30 UNV Miscellaneous Information (Nursing Verbal Med Order) 1 ea ONE ONCE N/A 11/26/16 08:15 11/26/16 08:16 UNV Miscellaneous Information (Nursing Verbal Med Order) 1 ea ONE ONCE N/A 11/26/16 08:03 11/26/16 08:04 UNV Miscellaneous Information (Nursing Verbal Med Order) 1 ea ONE ONCE N/A 11/26/16 08:15 11/26/16 08:16 UNV Miscellaneous Information (Nursing Verbal Med Order) 1 ea ONE ONCE N/A 11/26/16 08:30 11/26/16 08:31 UNV
[2016-11-26] MEDS: LEVALBUTEROL 1.25MG/3ML NEB INH SCH ×2 (09:15→19:26)
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
[2016-11-26] MEDS ORDERED: [UNRECOGNIZED DRUG - REMARK] PRN (09:54)
[2016-11-26] MEDS ORDERED: DOXYCYCLINE HYCLATE 100 MG in DEXTROSE 5% 100ML IV SCH (10:00)
[2016-11-26] MEDS ORDERED: CEFTRIAXONE CONSULT PHARMACY PRN (10:00)
--- NOTE | 2016-11-26 10:40 | DIAGNOSTIC IMAGING REPORT ---
CT OF THE HEAD WITHOUT CONTRAST CLINICAL HISTORY: Altered mental status. COMPARISON STUDY: Head CT November 25, 2016 and August 20, 2015. CT DOSE: 537.48 mGy.cm TECHNIQUE: Helical axial images of the head were obtained without IV contrast. Automated exposure control was utilized for the study. FINDINGS: No acute intracranial hemorrhage, midline shift or mass effect is present. Ventricular system is normal. Basilar cisterns are patent. There are no extra-axial collections. Jenkins-white differentiation is preserved. There are no findings to suggest acute dural sinus thrombosis or acute territorial infarct. There is no calvarial fracture. IMPRESSION: No acute intracranial findings. Electronically signed by: Nitin Ho M.D. 11/26/2016 10:39 AM Dictated Date/Time: 11/26/2016 10:36 AM
--- NOTE | 2016-11-26 11:29 | DIAGNOSTIC IMAGING REPORT ---
CHEST ONE VIEW PORTABLE CLINICAL HISTORY: Evaluate for pneumonia. COMPARISON STUDY: Chest radiograph November 25, 2016. FINDINGS: The patient is rotated. There is mild asymmetric left lung airspace opacity. There is no pneumothorax or pleural effusion. Right midlung linear opacity has developed. IMPRESSION: 1. Interval development of right midlung opacity. This favors atelectasis although pneumonia could appear similar. 2. Mild asymmetric left lung opacity. This could be due to patient rotation although airspace disease could appear similar. Electronically signed by: Nitin Ho M.D. 11/26/2016 11:28 AM Dictated Date/Time: 11/26/2016 11:26 AM
--- NOTE | 2016-11-26 11:43 | ORTHOPEDIC CONSULTATION ---
DATE OF CONSULTATION: 11/26/2016 DATE OF CONSULTATION: 11/26/2016. CHIEF COMPLAINT: Left foot pain. HISTORY OF PRESENT ILLNESS: This patient is a 61-year-old woman with an extensive past medical history which includes renal failure, hypoxia, history of mood disorder, chronic tobacco use who presented yesterday after a fall with left ankle pain. She was found to have a fractured ankle and was admitted for medicine because of worsening renal function with a creatinine of 6.3 and white blood cell count of 15.5. Orthopedic consultation was requested. The patient was in the monitored unit overnight. This morning, she awoke and was extremely agitated. She was combative and a code jacobs was called. She was heavily sedated and now in a state of deep sedation in the monitored bed. MEDICAL AND SURGICAL HISTORY: See admission history and physical. OBJECTIVE: The patient is extremely drowsy and is really arousable at this time. She is in bed with wrist restraints in place. Examination of her foot shows very minimal ecchymosis of the left foot. There is no obvious open injury, no deformity and her pulses are good. X-RAYS: AP and lateral of the foot and ankle were reviewed. These show a nondisplaced base of the fifth metatarsal fracture which is a Sanford equivalent. IMPRESSION: 1. Nondisplaced Sanford fracture. 2. History of depression, mood disorder. 3. History of recent acute renal failure. PLAN: This patient at this point can be very well treated in a low tide walking boot which is actually present and at her bedside. She will not require surgery. She will not require casting. Would recommend boot is on at all times while up and weightbearing. She can follow up as an outpatient for further management. Thank you for this consult.
[2016-11-26 11:44] LABS: PHOSPHORUS 5.2 mg/dl (2.5-4.9)
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
[2016-11-26] MEDS ORDERED: LEVOFLOXACIN CONSULT ACTIVE PRN (12:00)
[2016-11-26 12:24] LABS: ALLEN TEST POS (POS); ARTERIAL BLD GAS O2 SATURATION 89.3 % (90-95); ARTERIAL BLOOD GAS BASE EXCESS -9.3 mEq/L (-9-1.8); ARTERIAL BLOOD GAS HCO3 19 mmol/L (19-24); ARTERIAL BLOOD GAS PO2 67 mm/Hg (80-95); O2 ADMINISTRATION 2L
--- NOTE | 2016-11-26 12:41 | Psychiatric Consultation ---
Consultation Date of Consultation Nov 26, 2016. Identifying Data Jes Tejada is a 61-year-old female who per records lives alone in [place], [place], has a history of multiple medical problems as well as mental health issues, and presented to the emergency room yesterday with ankle pain, muscle spasms, and altered mental status. She was admitted to the hospitalist service for acute renal failure, acute hypoxia, left fifth metatarsal fracture, and altered mental status. Psychiatry was consulted after an episode of agitation this morning. Chief Complaint Patient somnolent and unarousable History of Present Illness Patient is sedated and unable to be aroused participate in the interview. Per staff in her room, she has been sleeping after receiving multiple doses of sedating medications this morning in the context of agitation. According to records, she presented to the emergency room yesterday with left ankle pain after a fall in her bathroom that morning. She also reported cough, back pain, tremor, and confusion. Her son stated she was not at her baseline cognitively, that she was having word finding difficulty, memory problems (could not remember son's phone number), and was disoriented. Head CT and chest x-ray showed no acute processes, but x-ray showed a fifth metatarsal fracture and lab work revealed acute kidney failure with a creatinine of 6.3, hypoxia, and elevated white count. A drug screen was not performed. EKG showed a QTC of 405. She is receiving IV fluids for hydration, NSAIDs were held as she reported chronic high-dose NSAID use, and nephrology was consulted. Orthopedics , neurology, urology, and psychiatry were all consulted. She is being empirically treated with antibiotics for bronchitis with underlying COPD. Initially, home medications were continued to avoid withdrawal, as she is on numerous controlled substances and duplicate agents, including duloxetine, nortriptyline, Adderall, Xanax, Flexeril, oxycodone, tramadol, gabapentin, and Fioricet, but it appears that today, many of these have been stopped. Per nursing notes, she was alert and oriented 4 last evening on admission, appeared to be sleeping comfortably overnight, and this morning was confused, not making sense, and was disoriented not knowing where she was. She became acutely agitated, was pulling off leads, trying to hit staff and pulling at their clothes, and a code reynaldo was called. She received 5 mg of Haldol, 2 mg of Ativan, and then 2.5 mg of Zyprexa for agitation, and since that time has been sleeping. The psychiatric liaison nurse attempted to contact her son, who was present at admission, but the phone number listed for him goes to the patient's cell phone. Per staff, her son has not come back and since admission. Past Psychiatric History Current OP Treatment: psychiatrist (Dr. Nabil Hayes in [place]) Prior Psych Hospitalizations: other (unknown) Past Medication Trials Unknown as patient unable to participate in the interview Additional Notes Previous psychiatric diagnoses unknown, but according to admission medication reconciliation, she is prescribed duloxetine, nortriptyline, amphetamine/ dextroamphetamine, and alprazolam. Per review of the PDMP, Dr. Hayes prescribes alprazolam and amphetamine/dextroamphetamine (both last filled 2016) , but it is unclear who prescribes the other medications. Past Medical/Surgical History (1) Migraine (2) Chronic pain (3) COPD (chronic obstructive pulmonary disease) (4) Fracture of fifth metatarsal bone of left foot (5) Hypoxia (6) Acute renal failure (ARF) Allergies Allergies: Coded Allergies: Baclofen (Verified Allergy, Severe, Confusion, 11/25/16) Reported by PT Neomycin (Verified Allergy, Intermediate, Unsure, 11/25/16) Macrolides (Verified Allergy, Unknown, 11/25/16) Penicillins (Verified Allergy, Unknown, 11/25/16) Home Medications Scheduled Amphetamine-Dextroamphetamine 20MG (Adderall 20MG), 20 MG PO BID Ascorbic Acid (Vitamin C), 1 TAB PO DAILY Duloxetine HCl (Duloxetine HCl), 60 MG PO HS Gabapentin (Gabapentin), 600 MG PO BID Nortriptyline Hcl (Pamelor), 3 CAP PO HS S-Adenosylmethionine (Giorgio-E), 1 TAB PO DAILY Scheduled PRN Acetamin/Butalbital/Caffeine (Fioricet), 1 TAB PO Q6H PRN for Headache Albuterol Sulfate (Proventil Hfa), 2 PUFFS INH Q4H PRN for ob/wheeze Alprazolam (Xanax), 1 MG PO BID PRN for Anxiety Cyclobenzaprine Hcl (Flexeril), 10 MG PO TID PRN for Muscle Spasms Epinephrine (Epipen 2-Jorge), 0.3 MG IM UD PRN for ALLERGIC REACTION Ondansetron Hcl (Zofran), 8 MG PO TID PRN for Nausea Tramadol HCl (Tramadol HCl), 50 MG PO Q6 PRN for Pain Family History Patient reports no known family medical history. Unknown as patient is unable to participate in assessment. Alcohol Use Alcohol Use In Past 12 Months: No (UNKNOWN) Unknown Smoking Use Smoking Status: Current Every Day Smoker Substance History Unknown, and drug screen not performed on admission Personal History Lives in: address listed as [place] Work History: Per chart, she is retired Additional Comments: Unknown as patient unable to participate in assessment Review of Systems Attempted to review 10 systems, but patient is sedated and unable to participate Examination Vital Signs Vital Signs Past 12 Hours Date Time Temp Pulse Resp B/P Pulse Ox O2 Delivery O2 Flow Rate FiO2 11/26/16 10:07 36.4 69 22 97/64 95 Nasal Cannula 2.0 11/26/16 09:52 70 14 96 Nasal Cannula 2.0 11/26/16 08:00 Nasal Cannula 2.0 11/26/16 07:56 94 118/65 11/26/16 07:39 36.4 76 18 93/61 90 2.0 11/26/16 04:06 37.0 97 17 128/77 90 Nasal Cannula 3.0 11/26/16 04:00 Nasal Cannula 3.0 Laboratory Results Last 24 Hours Test 11/25/16 17:00 11/25/16 18:58 11/25/16 19:43 11/26/16 05:49 White Blood Count 15.25 K/uL 11.09 K/uL Red Blood Count 4.14 M/uL 3.94 M/uL Hemoglobin 13.9 g/dL 13.1 g/dL Hematocrit 41.8 % 39.3 % Mean Corpuscular Volume 101.0 fL 99.7 fL Mean Corpuscular Hemoglobin 33.6 pg 33.2 pg Mean Corpuscular Hemoglobin Concent 33.3 g/dl 33.3 g/dl Platelet Count 219 K/uL 204 K/uL Neutrophils (%) (Auto) 77.4 % Lymphocytes (%) (Auto) 16.2 % Monocytes (%) (Auto) 5.6 % Eosinophils (%) (Auto) 0.1 % Basophils (%) (Auto) 0.2 % Neutrophils # (Auto) 11.81 K/uL Lymphocytes # (Auto) 2.47 K/uL Monocytes # (Auto) 0.85 K/uL Eosinophils # (Auto) 0.01 K/uL Basophils # (Auto) 0.03 K/uL Immature Granulocyte % (Auto) 0.5 % Immature Granulocyte # (Auto) 0.08 K/uL Prothrombin Time 9.8 SECONDS Prothromb Time International Ratio 0.9 Activated Partial Thromboplast Time 30.5 SECONDS Partial Thromboplastin Ratio 1.2 Sodium Level 135 mmol/L 135 mmol/L Potassium Level 4.5 mmol/L 4.6 mmol/L Chloride Level 102 mmol/L 102 mmol/L Carbon Dioxide Level 21 mmol/L 20 mmol/L Anion Gap 12.0 mmol/L 13.0 mmol/L Blood Urea Nitrogen 62 mg/dl 62 mg/dl Creatinine 6.30 mg/dl 5.80 mg/dl Est Creatinine Clear Calc Drug Dose 8.3 ml/min 8.3 ml/min Estimated GFR () 7.6 8.3 Estimated GFR (Non- 6.5 7.2 BUN/Creatinine Ratio 9.8 10.7 Random Glucose 135 mg/dl 139 mg/dl Osmolality 295 mOsm/kg Calcium Level 8.9 mg/dl 8.6 mg/dl Total Bilirubin 0.2 mg/dl Aspartate Amino Transf (AST/SGOT) 21 U/L Alanine Aminotransferase (ALT/SGPT) 23 U/L Alkaline Phosphatase 115 U/L Total Protein 7.6 gm/dl Albumin 3.8 gm/dl Globulin 3.8 gm/dl Albumin/Globulin Ratio 1.0 Thyroid Stimulating Hormone (TSH) 0.742 uIu/ml Urine Color YELLOW Urine Appearance TURBID Urine pH 5.5 Urine Specific [place] 1.015 Urine Protein TRACE Urine Glucose (UA) NEG Urine Ketones NEG Urine Occult Blood NEG Urine Nitrite NEG Urine Bilirubin NEG Urine Urobilinogen NEG Urine Leukocyte Esterase MODERATE Urine WBC (Auto) >30 /hpf Urine RBC (Auto) 0-4 /hpf Urine Hyaline Casts (Auto) 0 /lpf Urine Epithelial Cells (Auto) 5-10 /lpf Urine Bacteria (Auto) 2+ Urine Crystals AMORPHOUS SEDIMENT Urine Osmolality 297 mOms/kg Urine Random Creatinine 140.0 mg/dl Urine Random Sodium 19 mEq/L Arterial Blood pH 7.26 Arterial Blood Partial Pressure CO2 45 mmHg Arterial Blood Partial Pressure O2 70 mm/Hg Arterial Blood HCO3 20 mmol/L Arterial Blood Oxygen Saturation 91.7 % Arterial Blood Base Excess -7.0 mEq/L Arterial Blood Gas Delivery 3% Michael Test POS RDW Standard Deviation 50.4 fL RDW Coefficient of Variation 13.8 % Mean Platelet Volume 8.5 fL Magnesium Level 2.6 mg/dl 25-Hydroxy Vitamin D Total 15.0 ng/ml Test 11/26/16 08:08 11/26/16 11:05 11/26/16 11:15 11/26/16 11:45 Bedside Glucose 128 mg/dl Phosphorus Level 5.2 mg/dl Total Creatine Kinase 217 U/L Mental Examination During interview pt is: other (sedated and snoring loudly, unarousable) Appearance: other (wearing a hospital gown and lying in bed asleep) Eye contact is: other (no eye contact) Motor behavior is: no abnormal motor movements Speech: other (nonverbal) Affect: other (restricted to sedated) Mood is: other (unable to answer questions or participate in the interview) Impression / Recommendations Impression 61-year-old female with multiple medical problems and unclear psychiatric history who presents with acute delirium in the context of polypharmacy, acute kidney failure, and respiratory infection. Recommendations (1) Delirium Multifactorial, with polypharmacy, active infection, hypoxia, and kidney failure contributing. Treatment of multiple underlying medical conditions per primary team. Avoid deliriogenic medications, including opiates, benzodiazepines, antihistamines, and anticholinergics. Employ standard delirium treatment measures, including attempts to maintain regular circadian rhythms, keeping her room light in the day and dark at night, use of familiar staff as able, frequent reorientation, ensure she has access to hearing and visual aids as needed, and avoidance of deliriogenic agents. She is on an impressive number of controlled substances and duplicate agents, including 2 antidepressants ( duloxetine and nortriptyline), five pain medications (tramadol, gabapentin, Flexeril, Fioricet, and oxycodone), a stimulant and benzodiazepine. Unfortunately, no drug screen was obtained on admission, but even if taking these medications as prescribed, she would be at high risk for drug drug interactions, confusion, and encephalopathy. Recommend holding deliriogenic medications while obtaining collateral information from her outpatient prescribers. There will need to be good coordination of care between her active prescribers to clarify which medications are being prescribed by whom and for which disorders. We will attempt to contact Dr. Hayes tomorrow to clarify her psychotropic medication regimen. Abrupt cessation of duloxetine can lead to an unpleasant withdrawal syndrome, so as soon as this medication can be resumed, please reorder it. It would also be helpful to get collateral information from family regarding her medication use, specifically prn's such as Xanax, Flexeril, Fioricet, tramadol, and oxycodone.
[2016-11-26 12:49] LABS: BENZODIAZEPINE, URINE POS (NEG); COCAINE,URINE NEG (NEG); PHENCYCLIDINE, URINE NEG (NEG)
[2016-11-26] MEDS ORDERED: PNEUMOCOCCAL POLYSACCHARIDES 25 MCG/0.5 ML VIAL/SYR IM. ONE (15:00)
[2016-11-26] MEDS ORDERED: PNEUMOCOCCAL ADMINISTRATION CHARGE ONE (15:00)
[2016-11-26] MEDS ORDERED: INFLUENZA VIRUS QUAD VACCINE 0.5 ML SYR IM. ONE (15:30)
[2016-11-26] MEDS ORDERED: INFLUENZA ADMINISTRATION CHARGE ONE (15:30)
[2016-11-26 17:07] LABS: BUN/CREATININE RATIO 11.8 (10-20); CALCIUM 7.7 mg/dl (8.5-10.1); POTASSIUM 4.1 mmol/L (3.5-5.1)
[2016-11-26 17:08] LABS: CREATININE 5.1 mg/dl (0.60-1.20)
[2016-11-27] VITALS (9 sets, daily range): BP systolic 95–119; BP diastolic 58–73; PULSE 76–97; TEMP 36.7–37.5; O2SAT 90–95
[2016-11-27] MEDS: LEVALBUTEROL 1.25MG/3ML NEB INH SCH ×2 (02:00→06:57)
[2016-11-27] MEDS: SODIUM CHLORIDE 0.9% 1000ML 1,000 ML IV SCH ×2 (04:37→14:10)
[2016-11-27] MEDS: HEPARIN SOD 5000 UNIT/0.5 ML CARP SQ SCH ×3 (05:35→22:06)
[2016-11-27 07:27] LABS: CREATININE 4.5 mg/dl (0.60-1.20)
--- NOTE | 2016-11-27 08:00 | Nephrology Progress Note ---
Nephrology Progress Note Date of Service: November 27, 2016. Subjective 61 yo female with lorena thought to be nsaid induced and improving with fluids and holding nsaids. creatinine trending down and urinating well with pathak catheter. hx of urinary retention in the past and pathak placed during the admission. issues with delirium over the weekend and appears to be in a more aware state. neuro and psych were consulted. pt also with a loose cough and complaining of pain. broke her foot and has a walking boot in the room to use when she is weight bearing. Objective Date Time Temp Pulse Resp B/P Pulse Ox O2 Delivery O2 Flow Rate FiO2 11/27/16 07:09 36.7 92 20 112/68 93 Nasal Cannula 2.0 11/27/16 06:58 76 16 90 Nasal Cannula 2.0 11/27/16 04:16 37.0 97 18 110/61 94 Nasal Cannula 2.0 11/27/16 04:00 Nasal Cannula 2.0 11/27/16 02:00 92 16 95 Nasal Cannula 2.0 11/27/16 00:01 37.0 96 18 95/58 92 Nasal Cannula 2.0 11/27/16 00:00 Nasal Cannula 2.0 11/26/16 20:00 94 Nasal Cannula 2.0 11/26/16 20:00 94 Nasal Cannula 2.0 11/26/16 19:27 88 16 93 Nasal Cannula 2.0 11/26/16 19:17 36.8 88 16 114/77 95 Nasal Cannula 2.0 11/26/16 16:00 Nasal Cannula 2.0 11/26/16 15:04 36.5 82 16 104/70 93 Nasal Cannula 2.0 11/26/16 14:11 70 14 95 Nasal Cannula 2.0 11/26/16 14:08 20 133/82 95 Nasal Cannula 2.0 11/26/16 12:00 Nasal Cannula 2.0 11/26/16 10:07 36.4 69 22 97/64 95 Nasal Cannula 2.0 11/26/16 09:52 70 14 96 Nasal Cannula 2.0 11/26/16 08:00 Nasal Cannula 2.0 11/26/16 07:56 94 118/65 Physical Exam: General-aaox3, diaphoretic Eyes-no scleral icterus ENT-mmm Neck-supple Lungs-clear Heart-rrr Abdomen-bs+ s/nt/nd Extremities-no c/c/e Neuro-nonfocal this morning Current Inpatient Medications Medications (Trade) Dose Ordered Sig/Mynor Route Start Time Stop Time Status Last Admin Dose Admin Heparin Sodium (Porcine) (Heparin Sq 5000 Unit/0.5ml) 5,000 unit Q8H SQ 11/26/16 06:00 12/26/16 05:59 11/26/16 13:52 5,000 UNIT Acetaminophen (Tylenol Tab) 650 mg Q4H PRN PO 11/25/16 19:00 12/25/16 18:59 Ondansetron HCl (Zofran Inj) 4 mg Q6H PRN IV 11/25/16 19:00 12/25/16 18:59 Albuterol/ Ipratropium 3 ml 3 ml Q4R PRN INH 11/25/16 19:00 12/25/16 18:59 Sodium Chloride (Nss 1000ml) 1,000 ml @ 100 mls/hr Q10H IV 11/25/16 19:15 12/25/16 19:14 11/27/16 04:37 100 MLS/HR Ascorbic Acid (Vitamin C Tab) 1,000 mg DAILY PO 11/26/16 09:00 12/26/16 08:59 Levalbuterol (Xopenex 1.25MG/ 3ML Neb) 1.25 mg Q6R INH 11/26/16 09:15 12/26/16 09:14 11/27/16 06:57 1.25 MG Levofloxacin 1 ea 1 ea UD PRN N/A 11/26/16 12:00 12/06/16 11:59 Levofloxacin/Prmx (Levaquin / D5W/ Premixed D5W) 100 ml @ 100 mls/hr Q2D@1100 IV 11/28/16 11:00 12/06/16 10:59 Last 24 Hours Test 11/26/16 08:08 11/26/16 11:05 11/26/16 11:45 11/26/16 12:13 Bedside Glucose 128 mg/dl Phosphorus Level 5.2 mg/dl Total Creatine Kinase 217 U/L Ammonia < 10.0 umol/L Acetaminophen Level < 2 ug/ml Arterial Blood pH 7.20 Arterial Blood Partial Pressure CO2 49 mmHg Arterial Blood Partial Pressure O2 67 mm/Hg Arterial Blood HCO3 19 mmol/L Arterial Blood Oxygen Saturation 89.3 % Arterial Blood Base Excess -9.3 mEq/L Arterial Blood Gas Delivery 2L Michael Test POS Test 11/26/16 12:15 11/26/16 16:06 11/27/16 06:27 Urine Opiates Screen NEG Urine Methadone, Qualitative NEG Urine Barbiturates NEG Urine Phencyclidine (PCP) Level NEG Ur Amphetamine/Methamphetamine NEG MDMA (Ecstasy) Screen NEG Urine Benzodiazepines Screen POS Urine Cocaine Metabolite NEG Urine Marijuana (THC) NEG Sodium Level 141 mmol/L Potassium Level 4.1 mmol/L Chloride Level 108 mmol/L Carbon Dioxide Level 19 mmol/L Anion Gap 14.0 mmol/L Blood Urea Nitrogen 60 mg/dl Creatinine 5.10 mg/dl 4.50 mg/dl Est Creatinine Clear Calc Drug Dose 9.5 ml/min 10.7 ml/min Estimated GFR () 9.8 11.3 Estimated GFR (Non- 8.4 9.8 BUN/Creatinine Ratio 11.8 Random Glucose 81 mg/dl Calcium Level 7.7 mg/dl Date/Time Source Procedure Growth Status 11/26/16 09:45 Blood Blood Culture Pending Received 11/26/16 09:40 Blood Blood Culture Pending Received Assessment & Plan [id number] of urinary retention and chronic nsaids. would recommend avoiding nsaids in the future if possible although difficult with her chronic pains. renal us with no hydro but does show signs of medical renal disease. no changes to current treatment. tolerating the fluids well. will monitor for signs of volume overload.
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
[2016-11-27] MEDS: ASCORBIC ACID 500 MG TAB PO SCH (08:31)
[2016-11-27 08:45] LABS: BASO % 0.1 %; BASO ABS # 0.01 K/uL (0-0.2); COMPLETE YES; EOS % 0.4 %; HEMATOCRIT 34.8 % (37-47); IG% 0.3 %; LYMPH ABS # 2.76 K/uL (1.2-3.4); MEAN CORPUSCULAR HEMOGLOBIN 33.3 pg (25-34); MEAN CORPUSCULAR HGB CONC 33.3 g/dl (32-36); MEAN PLATELET VOLUME 8.8 fL (7.4-10.4); NEUT % 67.2 %; PLATELET COUNT 193 K/uL (130-400); RED BLOOD COUNT 3.48 M/uL (4.2-5.4); WHITE BLOOD COUNT 10.62 K/uL (4.8-10.8)
[2016-11-27 09:07] LABS: BUN/CREATININE RATIO 13.7 (10-20); CALCIUM 7.8 mg/dl (8.5-10.1); CREATININE 4.5 mg/dl (0.60-1.20); POTASSIUM 4.1 mmol/L (3.5-5.1)
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
--- NOTE | 2016-11-27 14:25 | Progress Note ---
Medicine Progress Note Date & Time of Visit: November 27, 2016 at 14:09. Subjective patient seen resting in bed, sleeping but easily rousable CONTRACT ADMINISTRATOR at bedside during entire encounter patient states she feels improved compared to yesterday she is already oriented x 3, answers all questions appropriately reports dysphagia today also has productive cough but no shortness of breath denies abdominal pain ,nausea, diarrhea states mood is ok today when inquired, patient states I do not need to update her son no other symptoms Objective Last 8 Hrs Date Time Temp Pulse Resp B/P Pulse Ox O2 Delivery O2 Flow Rate FiO2 11/27/16 12:00 Nasal Cannula 2.0 11/27/16 11:04 36.9 92 22 99/59 90 Nasal Cannula 2.0 11/27/16 08:00 Nasal Cannula 2.0 11/27/16 07:09 36.7 92 20 112/68 93 Nasal Cannula 2.0 11/27/16 06:58 76 16 90 Nasal Cannula 2.0 Physical Exam: General- oriented x 3, not in distress, speaks in sentences with no effort Head- atraumatic Eyes-anicteric ENT- oropharynx clear, (+) dry oral mucosa Neck- supple, no JVD Lungs- clear breath sounds bilaterally, no rales/wheezes Heart- normal rate, regular rhythm; no murmurs Abdomen- normal bowel sounds, soft, nontender, no masses Extremities- mild edema, left foot; no calf tenderness; peripheral pulses intact Neuro- alert, oriented x 3; no gross focal neuro deficits Skin- warm & dry Laboratory Results: Last 24 Hours Test 11/26/16 16:06 11/27/16 06:27 11/27/16 14:01 Sodium Level 141 mmol/L 143 mmol/L Potassium Level 4.1 mmol/L 4.1 mmol/L Chloride Level 108 mmol/L 113 mmol/L Carbon Dioxide Level 19 mmol/L 19 mmol/L Anion Gap 14.0 mmol/L 11.0 mmol/L Blood Urea Nitrogen 60 mg/dl 62 mg/dl Creatinine 5.10 mg/dl 4.50 mg/dl Est Creatinine Clear Calc Drug Dose 9.5 ml/min 10.7 ml/min Estimated GFR () 9.8 11.3 Estimated GFR (Non- 8.4 9.8 BUN/Creatinine Ratio 11.8 13.7 Random Glucose 81 mg/dl 83 mg/dl Calcium Level 7.7 mg/dl 7.8 mg/dl White Blood Count 10.62 K/uL Red Blood Count 3.48 M/uL Hemoglobin 11.6 g/dL Hematocrit 34.8 % Mean Corpuscular Volume 100.0 fL Mean Corpuscular Hemoglobin 33.3 pg Mean Corpuscular Hemoglobin Concent 33.3 g/dl Platelet Count 193 K/uL Mean Platelet Volume 8.8 fL Neutrophils (%) (Auto) 67.2 % Lymphocytes (%) (Auto) 26.0 % Monocytes (%) (Auto) 6.0 % Eosinophils (%) (Auto) 0.4 % Basophils (%) (Auto) 0.1 % Neutrophils # (Auto) 7.14 K/uL Lymphocytes # (Auto) 2.76 K/uL Monocytes # (Auto) 0.64 K/uL Eosinophils # (Auto) 0.04 K/uL Basophils # (Auto) 0.01 K/uL RDW Standard Deviation 52.6 fL RDW Coefficient of Variation 14.5 % Immature Granulocyte % (Auto) 0.3 % Immature Granulocyte # (Auto) 0.03 K/uL Chemistry Specimen Hemolysis Assessment & Plan 61 year old female with history of smoking, chronic back pain, mood disorder presenting with left foot pain. ACUTE RENAL FAILURE -? cause patient reports chronic NSAID use 600mg TID regularly, also reports urinary retention, ? obstruction, ? dehydration and other etiologies - renal us: 1. No hydronephrosis. 2. Increased renal echogenicity suggestive of medical renal disease. - crea 6.3 to 4.5 non oliguric - continue NSS renally dose medications appreciate Nephro consult ACUTE HYPOXIC RESPIRATORY FAILURE, LIKELY FROM ACUTE COPD EXACERBATION FROM ACUTE BRONCHITIS/PNEUMONIA - repeat cxr: 1. Interval development of right midlung opacity. This favors atelectasis although pneumonia could appear similar. 2. Mild asymmetric left lung opacity. This could be due to patient rotation although airspace disease could appear similar. - remains on 2 liters by NC - on Levaquin Day 2 levalbuterol/ipratropium hold Prednisone- no wheezing, delirious - ff up sputum and blood cultures EPISODE OF ALTERED MENTAL STATUS - DELIRIUM, Resolved - happened 10/3016 -CT head negative - multifactorial: secondary to hypoxia, uremia, infection, polypharmacy and other etiologies from Psych meds in the setting of Acute renal failure? held all Psych meds, other meds that may cause delirium, Psych consulted: recommend to resume Cymbalta, Nortryptiline, appreciate the consult from Underlying Infection- UTI Proteus, Pneumonia: blood cultures pending , on Levaquin Day 2 - repeat CT head: negative ammonia: negative - d/c one to one patient already oriented x 3 LEFT 5TH METATARSAL FRACTURE - continue with Boot - no surgery, casting recommended - ortho consulted, appreciate the consult URINARY RETENTION -Urology consulted - recommend pathak cath while admitted intermittent cath at home if needed - appreciate the recommendations MOVEMENT DISORDER -Follows with Dr. Greco -fall precautions -had recent EMGs: (+) polyneuropathy - possible worsening due to acute renal failure on multiple medications - Neuro consulted, recommend MRI Cervical and Lumbar spine when stable obtain b12, rpr, lyme, a1c, esr, ck, katya, crp - no abnormal movements observed today - monitor CHRONIC BACK PAIN -usually on Flexeril, Oxycodone, Tramadol, Gabapentin - held above secondary to acute delirium - will resume Tramadol DYSPHAGIA will order Speech Therapy eval MOOD DISORDER -usually on Cymbalta, Nortriptyline, Adderall, Xanax - management as noted above TOBACCO ABUSE -Cessation counseling given DVT PROPHYLAXIS: Sq heparin CODE STATUS: FULL CODE DISPO: pending usually lives at home needs PT/OT eval Current Inpatient Medications: Current Inpatient Medications Medications (Trade) Dose Ordered Sig/Mynor Route Start Time Stop Time Status Last Admin Dose Admin Heparin Sodium (Porcine) (Heparin Sq 5000 Unit/0.5ml) 5,000 unit Q8H SQ 11/26/16 06:00 12/26/16 05:59 11/26/16 13:52 5,000 UNIT Acetaminophen (Tylenol Tab) 650 mg Q4H PRN PO 11/25/16 19:00 12/25/16 18:59 Ondansetron HCl (Zofran Inj) 4 mg Q6H PRN IV 11/25/16 19:00 12/25/16 18:59 Albuterol/ Ipratropium 3 ml 3 ml Q4R PRN INH 11/25/16 19:00 12/25/16 18:59 Sodium Chloride (Nss 1000ml) 1,000 ml @ 100 mls/hr Q10H IV 11/25/16 19:15 12/25/16 19:14 11/27/16 04:37 100 MLS/HR Ascorbic Acid (Vitamin C Tab) 1,000 mg DAILY PO 11/26/16 09:00 12/26/16 08:59 11/27/16 08:31 1,000 MG Levofloxacin 1 ea 1 ea UD PRN N/A 11/26/16 12:00 12/06/16 11:59 Levofloxacin/Prmx (Levaquin / D5W/ Premixed D5W) 100 ml @ 100 mls/hr Q2D@1100 IV 11/28/16 11:00 12/06/16 10:59 Levalbuterol (Xopenex Hfa Inhaler) 2 puffs Q6 INH 11/27/16 18:00 12/27/16 17:59 Duloxetine HCl (Cymbalta Cap) 60 mg HS PO 11/27/16 21:00 12/27/16 20:59 Nortriptyline HCl (Pamelor Cap) 75 mg HS PO 11/27/16 21:00 12/27/16 20:59 UNV
[2016-11-27] MEDS: IPRATROPIUM BROMIDE HFA INHALER INH SCH (18:07)
[2016-11-27] MEDS: LEValbuterol HFA 15GM INHALER INH SCH (18:08)
[2016-11-27] MEDS: DULOXETINE HCL 60 MG CAP PO SCH (20:00)
[2016-11-27] MEDS: NORTRIPTYLINE HCL 25 MG CAP PO SCH (20:01)
[2016-11-28] MEDS: SODIUM CHLORIDE 0.9% 1000ML 1,000 ML IV SCH (00:15)
[2016-11-28 03:16] VITALS: BP 110/68; PULSE 79; TEMP 37.1; O2SAT 95
[2016-11-28] MEDS: HEPARIN SOD 5000 UNIT/0.5 ML CARP SQ SCH ×3 (05:50→21:12)
[2016-11-28] MEDS: LEValbuterol HFA 15GM INHALER INH SCH ×4 (06:11→17:20)
[2016-11-28] MEDS: IPRATROPIUM BROMIDE HFA INHALER INH SCH ×5 (06:11→23:59)
[2016-11-28 06:17] LABS: HEMATOCRIT 31.3 % (37-47); MEAN CELL VOLUME 99.7 fL (80-100); MEAN CORPUSCULAR HEMOGLOBIN 33.4 pg (25-34); MEAN CORPUSCULAR HGB CONC 33.5 g/dl (32-36); MEAN PLATELET VOLUME 8.3 fL (7.4-10.4); PLATELET COUNT 190 K/uL (130-400); RED BLOOD COUNT 3.14 M/uL (4.2-5.4); WHITE BLOOD COUNT 8.79 K/uL (4.8-10.8)
[2016-11-28 06:41] LABS: ESTIMATED AVERAGE GLUCOSE 108 mg/dl; HA1C FLAG Normal (Normal)
[2016-11-28 06:56] LABS: BUN/CREATININE RATIO 18.6 (10-20); CALCIUM 7.8 mg/dl (8.5-10.1); CREATININE 2.8 mg/dl (0.60-1.20); POTASSIUM 3.7 mmol/L (3.5-5.1)
[2016-11-28 07:00] LABS: C-REACTIVE PROTEIN 6.82 mg/dl (0-0.29)
[2016-11-28 07:49] VITALS: BP 128/76; PULSE 85; TEMP 36.8; O2SAT 95
[2016-11-28] MEDS: ASCORBIC ACID 500 MG TAB PO SCH (08:14)
--- NOTE | 2016-11-28 08:19 | Nephrology Progress Note ---
Nephrology Progress Note Date of Service: November 28, 2016. Subjective 61 yo female with lorena thought to be nsaid induced and improving with fluids and holding nsaids. creatinine trending down and urinating well with pathak catheter. hx of urinary retention in the past and pathak placed during the admission. pts main complaint today is a headache. also having difficulty with eating. pt though says she does feel better compared to admission. Objective Date Time Temp Pulse Resp B/P Pulse Ox O2 Delivery O2 Flow Rate FiO2 11/28/16 07:49 36.8 85 22 128/76 95 Nasal Cannula 2.0 Humidified Oxygen 11/28/16 04:00 Nasal Cannula 2.0 11/28/16 03:16 37.1 79 19 110/68 95 Nasal Cannula 2.0 11/28/16 00:00 Nasal Cannula 2.0 11/27/16 23:22 37.3 88 17 119/73 95 Nasal Cannula 2.0 11/27/16 20:00 Nasal Cannula 2.0 11/27/16 19:14 37.5 93 16 106/70 93 Nasal Cannula 2.0 11/27/16 16:00 Nasal Cannula 2.0 11/27/16 15:32 36.9 84 16 119/72 94 Nasal Cannula 2.0 11/27/16 12:00 Nasal Cannula 2.0 11/27/16 11:04 36.9 92 22 99/59 90 Nasal Cannula 2.0 Physical Exam: General-aaox3 Eyes-no scleral icterus ENT-mmm Neck-supple Lungs-cta Heart-regular Abdomen-bs+ s/nt/nd Extremities-no c/c/e Neuro-nonfocal -+pathak Current Inpatient Medications Medications (Trade) Dose Ordered Sig/Mynor Route Start Time Stop Time Status Last Admin Dose Admin Heparin Sodium (Porcine) (Heparin Sq 5000 Unit/0.5ml) 5,000 unit Q8H SQ 11/26/16 06:00 12/26/16 05:59 11/28/16 05:50 5,000 UNIT Acetaminophen (Tylenol Tab) 650 mg Q4H PRN PO 11/25/16 19:00 12/25/16 18:59 Ondansetron HCl (Zofran Inj) 4 mg Q6H PRN IV 11/25/16 19:00 12/25/16 18:59 Albuterol/ Ipratropium (Duoneb) 3 ml Q4R PRN INH 11/25/16 19:00 12/25/16 18:59 Ascorbic Acid (Vitamin C Tab) 1,000 mg DAILY PO 11/26/16 09:00 12/26/16 08:59 11/28/16 08:14 1,000 MG Levofloxacin 1 ea 1 ea UD PRN N/A 11/26/16 12:00 12/06/16 11:59 Levofloxacin/Prmx (Levaquin / D5W/ Premixed D5W) 100 ml @ 100 mls/hr Q2D@1100 IV 11/28/16 11:00 12/06/16 10:59 Levalbuterol (Xopenex Hfa Inhaler) 2 puffs Q6 INH 11/27/16 18:00 12/27/16 17:59 11/28/16 06:11 2 PUFFS Duloxetine HCl (Cymbalta Cap) 60 mg HS PO 11/27/16 21:00 12/27/16 20:59 11/27/16 20:00 60 MG Nortriptyline HCl (Pamelor Cap) 75 mg HS PO 11/27/16 21:00 12/27/16 20:59 11/27/16 20:01 75 MG Tramadol HCl (Ultram Tab) 50 mg Q12H PRN PO 11/27/16 14:30 12/27/16 14:29 Ipratropium [place] 1 puffs 1 puffs Q6 INH 11/27/16 18:00 12/27/16 17:59 11/28/16 06:11 1 PUFFS Sodium Chloride (1/2 Nss 1000ml) 1,000 ml @ 100 mls/hr Q10H IV 11/28/16 08:15 12/28/16 08:14 UNV Last 24 Hours Test 11/28/16 05:30 White Blood Count 8.79 K/uL Red Blood Count 3.14 M/uL Hemoglobin 10.5 g/dL Hematocrit 31.3 % Mean Corpuscular Volume 99.7 fL Mean Corpuscular Hemoglobin 33.4 pg Mean Corpuscular Hemoglobin Concent 33.5 g/dl RDW Standard Deviation 52.2 fL RDW Coefficient of Variation 14.4 % Platelet Count 190 K/uL Mean Platelet Volume 8.3 fL Erythrocyte Sedimentation Rate 25 mm/hr Sodium Level 146 mmol/L Potassium Level 3.7 mmol/L Chloride Level 119 mmol/L Carbon Dioxide Level 17 mmol/L Anion Gap 10.0 mmol/L Blood Urea Nitrogen 52 mg/dl Creatinine 2.80 mg/dl Est Creatinine Clear Calc Drug Dose 19.0 ml/min Estimated GFR () 20.1 Estimated GFR (Non- 17.4 BUN/Creatinine Ratio 18.6 Random Glucose 75 mg/dl Estimated Average Glucose 108 mg/dl Hemoglobin A1c 5.4 % Calcium Level 7.8 mg/dl Total Creatine Kinase 156 U/L C-Reactive Protein 6.82 mg/dl Vitamin B12 Level 985 pg/mL Date/Time Source Procedure Growth Status 11/27/16 20:20 Sputum Expectorated Sputum Gram Stain Pending Received 11/27/16 20:20 Sputum Expectorated Sputum Sputum Culture Pending Received Assessment & Plan [id number] of urinary retention and chronic nsaids. would recommend avoiding nsaids in the future if possible although difficult with her chronic pains. renal us with no hydro but does show signs of medical renal disease. creatinine continues to improve nicely. tolerating the iv fluids well. hypernatremia-sodium levels are trending up and switching to 1/2ns at 100cc/hr
[2016-11-28] MEDS: SODIUM CHLORIDE 0.45% 1000ML 1,000 ML IV SCH ×2 (08:44→17:23)
[2016-11-28 09:37] LABS: LYME DISEASE AB IGG NEG (NEG); LYME DISEASE AB IGM NEG (NEG)
[2016-11-28] MEDS ORDERED: LEVOFLOXACIN 500MG / D5W IV SCH (11:00)
[2016-11-28 12:05] VITALS: BP 112/67; PULSE 84; TEMP 36.7; O2SAT 98
[2016-11-28 15:42] VITALS: BP 112/68; PULSE 82; TEMP 36.9; O2SAT 98
[2016-11-28] MEDS: TRAMADOL HCL 50 MG TAB PO PRN (17:48)
[2016-11-28 19:24] VITALS: BP 121/78; PULSE 88; TEMP 36.8; O2SAT 98
--- NOTE | 2016-11-28 19:30 | Progress Note ---
Internal Med Progress Note Date of Service: November 28, 2016. Provider Documentation: SUBJECTIVE: says feels well , offers no complain , nasal canula bothering her , having frontal headache tramadol helps transiently no fever or chills no SOB or chest heaviness OBJECTIVE: Vital Signs-as noted below Exam: General-no sign of distress Eyes-sclera non icteric ENT-nad Neck-no JVD Lungs-CTA, no wheeze or rales Heart-regular S1/S2 Abdomen-soft, non tender Extremities-no lower ext edema Neuro-AAO x3 Lab data as noted below. ASSESSMENT & PLAN: 61 year old female with history of smoking, chronic back pain, mood disorder presenting with left foot pain. ACUTE RENAL FAILURE ATN possible due to NSAID induced patient reports chronic NSAID use 600mg TID regularly, also reports urinary retention, ? obstruction, ? dehydration and other etiologies - renal us: 1. No hydronephrosis. 2. Increased renal echogenicity suggestive of medical renal disease. - crea improved 6.3 to 4.5-> 2.8 non oliguric - continue NSS renally dose medications appreciate Nephro consult ACUTE HYPOXIC RESPIRATORY FAILURE, LIKELY FROM ACUTE COPD EXACERBATION FROM ACUTE BRONCHITIS/PNEUMONIA - repeat cxr: 1. Interval development of right midlung opacity. This favors atelectasis although pneumonia could appear similar. 2. Mild asymmetric left lung opacity. This could be due to patient rotation although airspace disease could appear similar. - remains on 2 liters by MO - on Levaquin Day # 3 levalbuterol/ipratropium hold Prednisone- no wheezing, delirious - ff up sputum and blood cultures EPISODE OF ALTERED MENTAL STATUS - DELIRIUM, Resolved - happened 10/3016 -CT head negative - multifactorial: secondary to hypoxia, uremia, infection, polypharmacy and other etiologies from Psych meds in the setting of Acute renal failure? held all Psych meds, other meds that may cause delirium, Psych consulted: recommend to resume Cymbalta, Nortryptiline, appreciate the consult from Underlying Infection- UTI Proteus, Pneumonia: blood cultures pending , on Levaquin Day 2 - repeat CT head: negative ammonia: negative LEFT 5TH METATARSAL FRACTURE - continue with Boot - no surgery, casting recommended - ortho consulted, appreciate the consult URINARY RETENTION -Urology consulted - recommend pathak cath while admitted intermittent cath at home if needed - appreciate the recommendations MOVEMENT DISORDER -Follows with Dr. Greco -fall precautions -had recent EMGs: (+) polyneuropathy - possible worsening due to acute renal failure on multiple medications - Neuro consulted, recommend MRI Cervical and Lumbar spine when stable ordered for b12, rpr, lyme, a1c, esr, ck, katya, crp - no abnormal movements observed today - monitor CHRONIC BACK PAIN -usually on Flexeril, Oxycodone, Tramadol, Gabapentin - held above secondary to acute delirium - Tramadol resumed DYSPHAGIA Speech Therapy eval requested MOOD DISORDER -usually on Cymbalta, Nortriptyline, Adderall, Xanax - management as noted above TOBACCO ABUSE -Cessation counseling given DVT PROPHYLAXIS: Sq heparin CODE STATUS: FULL CODE DISPOSITION PT /Ot eval prior to discharge home Social service consulted for discharge planing Vital Signs: Date Time Temp Pulse Resp B/P Pulse Ox O2 Delivery O2 Flow Rate FiO2 11/29/16 15:18 36.3 75 20 148/80 99 Room Air 11/29/16 12:00 Nasal Cannula 11/29/16 11:26 36.7 85 16 133/79 97 2.0 11/29/16 08:00 94 Nasal Cannula 11/29/16 07:13 36.7 79 16 122/74 94 2.0 11/29/16 04:00 Nasal Cannula 1.0 11/29/16 03:21 36.7 98 19 130/76 96 Nasal Cannula 1.0 11/29/16 00:00 Nasal Cannula 1.0 11/28/16 23:29 36.8 81 17 148/83 96 Nasal Cannula 1.0 11/28/16 20:00 Nasal Cannula 1.0 11/28/16 19:24 36.8 88 22 121/78 98 Nasal Cannula 1.0 Lab Results: Results Past 24 Hours Test 11/29/16 05:32 Range/Units Sodium Level 146 136-145 mmol/L Potassium Level 3.5 3.5-5.1 mmol/L Chloride Level 117 98-107 mmol/L Carbon Dioxide Level 19 21-32 mmol/L Anion Gap 10.0 3-11 mmol/L Blood Urea Nitrogen 41 7-18 mg/dl Creatinine 2.00 0.60-1.20 mg/dl Est Creatinine Clear Calc Drug Dose 26.6 ml/min Estimated GFR () 30.2 Estimated GFR (Non- 26.1 BUN/Creatinine Ratio 20.3 10-20 Random Glucose 82 70-99 mg/dl Calcium Level 7.9 8.5-10.1 mg/dl
[2016-11-28] MEDS: NORTRIPTYLINE HCL 25 MG CAP PO SCH (21:11)
[2016-11-28] MEDS: DULOXETINE HCL 60 MG CAP PO SCH (21:11)
[2016-11-28 23:29] VITALS: BP 148/83; PULSE 81; TEMP 36.8; O2SAT 96
[2016-11-29] VITALS (7 sets, daily range): BP systolic 122–148; BP diastolic 74–83; PULSE 75–98; TEMP 36.3–36.8; O2SAT 94–99
[2016-11-29] MEDS: SODIUM CHLORIDE 0.45% 1000ML 1,000 ML IV SCH ×2 (03:26→13:49)
[2016-11-29] MEDS: HEPARIN SOD 5000 UNIT/0.5 ML CARP SQ SCH ×3 (04:55→21:31)
[2016-11-29] MEDS: LEValbuterol HFA 15GM INHALER INH SCH ×4 (05:42→18:22)
[2016-11-29] MEDS: IPRATROPIUM BROMIDE HFA INHALER INH SCH ×3 (05:42→18:22)
[2016-11-29 06:22] LABS: BUN/CREATININE RATIO 20.3 (10-20); CALCIUM 7.9 mg/dl (8.5-10.1); POTASSIUM 3.5 mmol/L (3.5-5.1)
[2016-11-29] MEDS: TRAMADOL HCL 50 MG TAB PO PRN ×2 (09:18→21:31)
[2016-11-29] MEDS: ASCORBIC ACID 500 MG TAB PO SCH (09:19)
--- NOTE | 2016-11-29 09:35 | Nephrology Progress Note ---
Nephrology Progress Note Date of Service: November 29, 2016. Subjective 61 yo female with lorena thought to be nsaid induced and improving with fluids and holding nsaids. creatinine trending down and urinating well with pathak catheter. hx of urinary retention in the past and pathak placed during the admission. pt feels unsteady with the walking boot. slept well last night. pt looks better everyday. Objective Date Time Temp Pulse Resp B/P Pulse Ox O2 Delivery O2 Flow Rate FiO2 11/29/16 07:13 36.7 79 16 122/74 94 2.0 11/29/16 04:00 Nasal Cannula 1.0 11/29/16 03:21 36.7 98 19 130/76 96 Nasal Cannula 1.0 11/29/16 00:00 Nasal Cannula 1.0 11/28/16 23:29 36.8 81 17 148/83 96 Nasal Cannula 1.0 11/28/16 20:00 Nasal Cannula 1.0 11/28/16 19:24 36.8 88 22 121/78 98 Nasal Cannula 1.0 11/28/16 16:00 Nasal Cannula 1.0 11/28/16 15:42 36.9 82 20 112/68 98 Nasal Cannula 1.0 11/28/16 12:05 36.7 84 20 112/67 98 Nasal Cannula 2.0 11/28/16 12:00 Nasal Cannula 2.0 Physical Exam: General-aaox3 Eyes-no scleral icterus ENT-mmm Neck-supple Lungs-clear Heart-rrr Abdomen-bs+ s/nt/nd Extremities-no c/c/e Neuro-nonfocal -+pathak Current Inpatient Medications Medications (Trade) Dose Ordered Sig/Mynor Route Start Time Stop Time Status Last Admin Dose Admin Heparin Sodium (Porcine) (Heparin Sq 5000 Unit/0.5ml) 5,000 unit Q8H SQ 11/26/16 06:00 12/26/16 05:59 11/28/16 21:12 5,000 UNIT Acetaminophen (Tylenol Tab) 650 mg Q4H PRN PO 11/25/16 19:00 12/25/16 18:59 Ondansetron HCl (Zofran Inj) 4 mg Q6H PRN IV 11/25/16 19:00 12/25/16 18:59 Albuterol/ Ipratropium (Duoneb) 3 ml Q4R PRN INH 4/29/17 19:00 12/25/16 18:59 Ascorbic Acid (Vitamin C Tab) 1,000 mg DAILY PO 11/26/16 09:00 12/26/16 08:59 11/29/16 09:19 1,000 MG Levofloxacin 1 ea 1 ea UD PRN N/A 11/26/16 12:00 12/06/16 11:59 Levofloxacin/Prmx (Levaquin / D5W/ Premixed D5W) 100 ml @ 100 mls/hr Q2D@1100 IV 11/28/16 11:00 12/06/16 10:59 11/28/16 11:32 100 MLS/HR Levalbuterol (Xopenex Hfa Inhaler) 2 puffs Q6 INH 11/27/16 18:00 12/27/16 17:59 11/29/16 05:42 2 PUFFS Duloxetine HCl (Cymbalta Cap) 60 mg HS PO 11/27/16 21:00 12/27/16 20:59 11/28/16 21:11 60 MG Nortriptyline HCl (Pamelor Cap) 75 mg HS PO 11/27/16 21:00 12/27/16 20:59 11/28/16 21:11 75 MG Tramadol HCl (Ultram Tab) 50 mg Q12H PRN PO 11/27/16 14:30 12/27/16 14:29 11/29/16 09:18 50 MG Ipratropium [place] 1 puffs 1 puffs Q6 INH 11/27/16 18:00 12/27/16 17:59 11/29/16 05:42 1 PUFFS Sodium Chloride (1/2 Nss 1000ml) 1,000 ml @ 100 mls/hr Q10H IV 11/28/16 08:40 12/28/16 08:39 11/29/16 03:26 100 MLS/HR Last 24 Hours Test 11/29/16 05:32 Sodium Level 146 mmol/L Potassium Level 3.5 mmol/L Chloride Level 117 mmol/L Carbon Dioxide Level 19 mmol/L Anion Gap 10.0 mmol/L Blood Urea Nitrogen 41 mg/dl Creatinine 2.00 mg/dl Est Creatinine Clear Calc Drug Dose 26.6 ml/min Estimated GFR () 30.2 Estimated GFR (Non- 26.1 BUN/Creatinine Ratio 20.3 Random Glucose 82 mg/dl Calcium Level 7.9 mg/dl Assessment & Plan SVD-bex-hwhypxot-hx of urinary retention and chronic nsaids. would recommend avoiding nsaids in the future if possible although difficult with her chronic pains. renal us with no hydro but does show signs of medical renal disease. creatinine down to 2. would like to stop the iv fluids tomorrow and consider a voiding trial tomorrow with catheter removed to see if she can urinate on her own. hypernatremia-sodium levels are elevated at 146, encourage po fluids. currently on 1/2ns and will continue for another twenty four hours and then stop them tomorrow.
[2016-11-29 10:06] LABS: HYDROXYETHYLFLURAZEPAM CONF NEGATIVE NG/ML (CUTOFF=50); HYDROXYMIDAZOLAM NEGATIVE NG/ML (CUTOFF=50); HYDROXYTRIAZOLAM CONF NEGATIVE NG/ML (CUTOFF=50); TEMAZEPAM CONF NEGATIVE NG/ML (CUTOFF=50)
--- NOTE | 2016-11-29 21:10 | Progress Note ---
Internal Med Progress Note Date of Service: November 29, 2016. Provider Documentation: SUBJECTIVE: feels much better today no complain of headache , has chronic back pain but tolerable no SOB or chest discomfort, no fever or chills OBJECTIVE: Vital Signs-as noted below Exam: General-no sign of distress Eyes-sclera non icteric ENT-nad Neck-no JVD Lungs-CTA, no wheeze or rales Heart-regular S1/S2 Abdomen-soft, non tender Extremities-no lower ext edema Neuro-AAO x3 Lab data as noted below. ASSESSMENT & PLAN: 61 year old female with history of smoking, chronic back pain, mood disorder presenting with left foot pain. ACUTE RENAL FAILURE ATN possible due to NSAID induced patient reports chronic NSAID use 600mg TID regularly - renal us: 1. No hydronephrosis. 2. Increased renal echogenicity suggestive of medical renal disease. - crea improved 6.3 to 4.5-> 2.8 -> 2 non oliguric - continue IVF changed to 1/2NSS @ 100 ml /hr due to hypernatremia pt is counselled to avoid NSAID's in future for pain renally dose medications appreciate Nephro consult HYPERNATREMIA : Na 146 IVF changed to 1/2 NSS follow PPP UTI : hx of recurrent UTI urine culture Enterococci sensitive to Levaquin cont for 7-10 days tx given recurrent UTI URINARY RETENTION chronic hx of poor bladder emptying , poor bladder sensation , recurrent UTI pt was seen by [facility] in past as scheduled to have out pt cystoscopy -which pt could not follow in past Urology recommended at home intermittent self straight cath if needed -Urology consulted - appreciate input d/w Pt does not want Tirado Catheter to be discontinued as still having back pain and left foot pain afraid of having fall while trying to get up to urinate multiple times will cont Tirado as long pt is getting IV fluid voiding trial with DC Tirado prior to discharge will need post voiding bladder scan to assess urinary retention pt is aware of Urology recommendation for intermittent self cath for unable to void out pt follow up with Urology ACUTE HYPOXIC RESPIRATORY FAILURE, LIKELY FROM ACUTE COPD EXACERBATION FROM ACUTE BRONCHITIS/PNEUMONIA resolved, on room air - repeat cxr: 1. Interval development of right midlung opacity. This favors atelectasis although pneumonia could appear similar. 2. Mild asymmetric left lung opacity. This could be due to patient rotation although airspace disease could appear similar. - on Levaquin Day # 4 levalbuterol/ipratropium neb tx PRN EPISODE OF ALTERED MENTAL STATUS - DELIRIUM, Resolved - happened 11/26/16 -CT head negative - multifactorial: secondary to hypoxia, uremia, infection, polypharmacy and other etiologies from Psych meds in the setting of Acute renal failure? held all Psych meds, other meds that may cause delirium, Psych consulted: recommend to resume Cymbalta, Nortryptiline, appreciate the consult from Underlying Infection- UTI Proteus, Pneumonia: blood cultures pending , on Levaquin Day 2 - repeat CT head: negative ammonia: negative LEFT 5TH METATARSAL FRACTURE - continue with Boot - no surgery, casting recommended - ortho consulted, appreciate the consult MOVEMENT DISORDER -Follows with Dr. Greco -fall precautions -had recent EMGs: (+) polyneuropathy - possible worsening due to acute renal failure on multiple medications - Neuro consulted, recommend MRI Cervical and Lumbar spine when stable ordered for b12, rpr, lyme, a1c, esr, ck, katya, crp - no abnormal movements observed today - monitor CHRONIC BACK PAIN -usually on Flexeril, Oxycodone, Tramadol, Gabapentin - held above secondary to acute delirium - Tramadol resumed DYSPHAGIA Speech Therapy eval requested MOOD DISORDER -usually on Cymbalta, Nortriptyline, Adderall, Xanax - management as noted above TOBACCO ABUSE -Cessation counseling given DVT PROPHYLAXIS: Sq heparin CODE STATUS: FULL CODE DISPOSITION PT /Ot eval requested may benefit form Rehab Social service consulted for discharge planing Vital Signs: Date Time Temp Pulse Resp B/P Pulse Ox O2 Delivery O2 Flow Rate FiO2 11/29/16 19:43 99 Room Air 11/29/16 19:33 36.8 79 16 143/83 99 Room Air 11/29/16 16:00 Room Air 11/29/16 15:18 36.3 75 20 148/80 99 Room Air 11/29/16 12:00 Nasal Cannula 11/29/16 11:26 36.7 85 16 133/79 97 2.0 11/29/16 08:00 94 Nasal Cannula 11/29/16 07:13 36.7 79 16 122/74 94 2.0 11/29/16 04:00 Nasal Cannula 1.0 5/3/17 03:21 36.7 98 19 130/76 96 Nasal Cannula 1.0 11/29/16 00:00 Nasal Cannula 1.0 11/28/16 23:29 36.8 81 17 148/83 96 Nasal Cannula 1.0 Lab Results: Results Past 24 Hours Test 11/29/16 05:32 Range/Units Sodium Level 146 136-145 mmol/L Potassium Level 3.5 3.5-5.1 mmol/L Chloride Level 117 98-107 mmol/L Carbon Dioxide Level 19 21-32 mmol/L Anion Gap 10.0 3-11 mmol/L Blood Urea Nitrogen 41 7-18 mg/dl Creatinine 2.00 0.60-1.20 mg/dl Est Creatinine Clear Calc Drug Dose 26.6 ml/min Estimated GFR () 30.2 Estimated GFR (Non- 26.1 BUN/Creatinine Ratio 20.3 10-20 Random Glucose 82 70-99 mg/dl Calcium Level 7.9 8.5-10.1 mg/dl
[2016-11-29] MEDS: DULOXETINE HCL 60 MG CAP PO SCH (21:32)
[2016-11-29] MEDS: NORTRIPTYLINE HCL 25 MG CAP PO SCH (21:32)
[2016-11-29 23:19] LABS: RAPID PLASMA REAGIN NONREACTIVE (NONREACT)
[2016-11-30 00:31] VITALS: BP 133/73; PULSE 76; TEMP 36.7; O2SAT 98
[2016-11-30] MEDS: SODIUM CHLORIDE 0.45% 1000ML 1,000 ML IV SCH (00:40)
[2016-11-30] MEDS: LEValbuterol HFA 15GM INHALER INH SCH ×4 (05:55→18:18)
[2016-11-30] MEDS: IPRATROPIUM BROMIDE HFA INHALER INH SCH ×4 (05:55→18:17)
[2016-11-30] MEDS: HEPARIN SOD 5000 UNIT/0.5 ML CARP SQ SCH ×3 (05:55→21:06)
[2016-11-30 07:04] LABS: CALCIUM 7.9 mg/dl (8.5-10.1); CREATININE 1.4 mg/dl (0.60-1.20); POTASSIUM 3.1 mmol/L (3.5-5.1)
[2016-11-30] MEDS ORDERED: POTASSIUM CHLORIDE 10 MEQ TABCR PO STA (07:22)
[2016-11-30 07:27] VITALS: BP 132/76; PULSE 74; TEMP 36.8; O2SAT 96
[2016-11-30] MEDS: ASCORBIC ACID 500 MG TAB PO SCH (07:50)
[2016-11-30] MEDS ORDERED: POTASSIUM CHLORIDE 10 MEQ TABCR PO ONE (08:00)
[2016-11-30] MEDS ORDERED: LEVOFLOXACIN 750 MG TAB PO SCH (11:00)
[2016-11-30] MEDS ORDERED: LEVOFLOXACIN 750MG / D5W IV SCH (11:00)
[2016-11-30 11:33] VITALS: O2SAT 96
[2016-11-30] MEDS: TRAMADOL HCL 50 MG TAB PO PRN (14:46)
[2016-11-30 16:00] VITALS: O2SAT 99
[2016-11-30 16:06] VITALS: BP 135/79; PULSE 83; TEMP 36.8; O2SAT 99
--- NOTE | 2016-11-30 17:55 | Progress Note ---
Internal Med Progress Note Date of Service: November 30, 2016. Provider Documentation: SUBJECTIVE: feels well , willing to go to [facility] tomorrow if accepted OBJECTIVE: Vital Signs-as noted below Exam: General-no sign of distress Eyes-sclera non icteric ENT-nad Neck-no JVD Lungs-CTA, no wheeze or rales Heart-regular S1/S2 Abdomen-soft, non tender Extremities-no lower ext edema Neuro-AAO x3 Lab data as noted below. ASSESSMENT & PLAN: 61 year old female with history of smoking, chronic back pain, mood disorder presenting with left foot pain. ACUTE RENAL FAILURE ATN possible due to NSAID induced patient reports chronic NSAID use 600mg TID regularly - renal us: 1. No hydronephrosis. 2. Increased renal echogenicity suggestive of medical renal disease. - crea improved 6.3 to 4.5-> 2.8 -> 2 -> 1.4 non oliguric - IV D/ghazal pt is counselled to avoid NSAID's in future for pain renally dose medications appreciate Nephro consult HYPERNATREMIA : resolved UTI : hx of recurrent UTI urine culture Enterococci sensitive to Levaquin cont for 7-10 days tx given recurrent UTI URINARY RETENTION chronic hx of poor bladder emptying , poor bladder sensation , recurrent UTI pt was seen by Urologic associates in past as scheduled to have out pt cystoscopy -which pt could not follow in past Urology recommended at home intermittent self straight cath if needed -Urology consulted - appreciate input d/w Pt does not want Tirado Catheter to be discontinued as still having back pain and left foot pain afraid of having fall while trying to get up to urinate multiple times will D/c Tirado in AM as IV F is discontinued post void bladder scan to asses residual urine out pt follow up with Urology ACUTE HYPOXIC RESPIRATORY FAILURE, LIKELY FROM ACUTE COPD EXACERBATION FROM ACUTE BRONCHITIS/PNEUMONIA resolved, on room air - repeat cxr: 1. Interval development of right midlung opacity. This favors atelectasis although pneumonia could appear similar. 2. Mild asymmetric left lung opacity. This could be due to patient rotation although airspace disease could appear similar. - on Levaquin Day # 5 levalbuterol/ipratropium neb tx PRN EPISODE OF ALTERED MENTAL STATUS - DELIRIUM, Resolved - happened 11/26/16 -CT head negative - multifactorial: secondary to hypoxia, uremia, infection, polypharmacy and other etiologies from Psych meds in the setting of Acute renal failure? held all Psych meds, other meds that may cause delirium, Psych consulted: recommend to resume Cymbalta, Nortryptiline, appreciate the consult from Underlying Infection- UTI Proteus, Pneumonia: blood cultures pending , on Levaquin Day 2 - repeat CT head: negative ammonia: negative LEFT 5TH METATARSAL FRACTURE - continue with Boot - no surgery, casting recommended - ortho consulted, appreciate the consult MOVEMENT DISORDER -Follows with Dr. Greco -fall precautions -had recent EMGs: (+) polyneuropathy - possible worsening due to acute renal failure on multiple medications - Neuro consulted, recommend MRI Cervical and Lumbar spine when stable ordered for b12, rpr, lyme, a1c, esr, ck, katya, crp - no abnormal movements observed today - monitor CHRONIC BACK PAIN -usually on Flexeril, Oxycodone, Tramadol, Gabapentin - held above secondary to acute delirium - Tramadol resumed DYSPHAGIA Speech Therapy eval requested MOOD DISORDER -usually on Cymbalta, Nortriptyline, Adderall, Xanax - management as noted above TOBACCO ABUSE -Cessation counseling given DVT PROPHYLAXIS: Sq heparin CODE STATUS: FULL CODE DISPOSITION PT /Ot eval requested may benefit form Rehab Social service consulted for discharge planing transfer to [facility] when accepted Vital Signs: Date Time Temp Pulse Resp B/P Pulse Ox O2 Delivery O2 Flow Rate FiO2 12/01/16 16:00 Room Air 12/01/16 14:54 36.7 80 20 155/89 93 Room Air 12/01/16 08:00 Room Air 12/01/16 07:17 36.7 77 18 113/72 93 Room Air 12/01/16 00:01 36.4 81 20 132/85 99 Room Air 12/01/16 00:00 Room Air Lab Results: Results Past 24 Hours Test 12/01/16 06:15 Range/Units White Blood Count 7.65 4.8-10.8 K/uL Red Blood Count 3.74 4.2-5.4 M/uL Hemoglobin 12.5 12.0-16.0 g/dL Hematocrit 36.0 37-47 % Mean Corpuscular Volume 96.3 80-100 fL Mean Corpuscular Hemoglobin 33.4 25-34 pg Mean Corpuscular Hemoglobin Concent 34.7 32-36 g/dl RDW Standard Deviation 48.7 36.4-46.3 fL RDW Coefficient of Variation 13.9 11.5-14.5 % Platelet Count 192 130-400 K/uL Mean Platelet Volume 8.2 7.4-10.4 fL Sodium Level 144 136-145 mmol/L Potassium Level 3.4 3.5-5.1 mmol/L Chloride Level 114 98-107 mmol/L Carbon Dioxide Level 20 21-32 mmol/L Anion Gap 10.0 3-11 mmol/L Blood Urea Nitrogen 32 7-18 mg/dl Creatinine 1.30 0.60-1.20 mg/dl Est Creatinine Clear Calc Drug Dose 41.0 ml/min Estimated GFR () 50.9 Estimated GFR (Non- 43.9 BUN/Creatinine Ratio 24.3 10-20 Random Glucose 93 70-99 mg/dl Calcium Level 8.3 8.5-10.1 mg/dl
[2016-11-30] MEDS: ONDANSETRON 8MG OD TAB PO PRN (21:06)
[2016-11-30] MEDS: NORTRIPTYLINE HCL 25 MG CAP PO SCH (21:21)
[2016-11-30] MEDS: DULOXETINE HCL 60 MG CAP PO SCH (21:21)
[2016-12-01 00:01] VITALS: BP 132/85; PULSE 81; TEMP 36.4; O2SAT 99
[2016-12-01] MEDS: IPRATROPIUM BROMIDE HFA INHALER INH SCH ×4 (06:00→18:14)
[2016-12-01] MEDS: HEPARIN SOD 5000 UNIT/0.5 ML CARP SQ SCH ×2 (06:00→14:00)
[2016-12-01] MEDS: LEValbuterol HFA 15GM INHALER INH SCH ×4 (06:00→18:15)
[2016-12-01 06:40] LABS: MEAN CELL VOLUME 96.3 fL (80-100); MEAN CORPUSCULAR HEMOGLOBIN 33.4 pg (25-34); MEAN CORPUSCULAR HGB CONC 34.7 g/dl (32-36); MEAN PLATELET VOLUME 8.2 fL (7.4-10.4); PLATELET COUNT 192 K/uL (130-400); RED BLOOD COUNT 3.74 M/uL (4.2-5.4); WHITE BLOOD COUNT 7.65 K/uL (4.8-10.8)
[2016-12-01 07:13] LABS: BUN/CREATININE RATIO 24.3 (10-20); CALCIUM 8.3 mg/dl (8.5-10.1); CREATININE 1.3 mg/dl (0.60-1.20); POTASSIUM 3.4 mmol/L (3.5-5.1)
[2016-12-01 07:17] VITALS: BP 113/72; PULSE 77; TEMP 36.7; O2SAT 93
[2016-12-01] MEDS ORDERED: POTASSIUM CHLORIDE 10 MEQ TABCR PO ONE (07:45)
[2016-12-01] MEDS: ASCORBIC ACID 500 MG TAB PO SCH (09:19)
[2016-12-01] MEDS: ONDANSETRON 8MG OD TAB PO PRN ×2 (09:56→15:51)
[2016-12-01] MEDS ORDERED: LEVOFLOXACIN 750 MG TAB PO SCH (11:00)
[2016-12-01 14:54] VITALS: BP 155/89; PULSE 80; TEMP 36.7; O2SAT 93
[2016-12-01] MEDS: TRAMADOL HCL 50 MG TAB PO PRN (15:51)
--- NOTE | 2016-12-01 19:51 | Discharge Instructions ---
Discharge Instructions Date of Service December 01, 2016. Admission Reason for Admission: Acute Renal Failure; Hypoxia Discharge Discharge Diagnosis / Problem: ACUTE RENAL FAILURE /UTI/LEFT 5TH METATERSAL FRACTURE Discharge Goals Goal(s): Improve disease control, Therapeutic intervention Activity Recommendations Activity Limitations: resume your previous activity . Instructions / Follow-Up Instructions / Follow-Up HOSPITAL FOLLOW UP WITH DR BECERRIL IN A WEEK , OFFICE WILL CALL WITH APPOINTMENT DO NOT TAKE ASPIRIN , ALEVE, MOTRIN , IBUPROFEN , NAPROXEN , WILL CAUSE MORE DAMAGE TO YOUR KIDNEY PLEASE LIMIT SALT IN YOUR DIET NEED TO BE ON LOW POTASSIUM DIET : LOW POTASSIUM FRUITS /VEGETABLES : APPLES , GRAPES, CHERRIES , WATERMELON , ASPARAGUS , BROCCOLI LAB WORK ; BASIC METABOLIC PANEL ON Sunday12/04/[address] UROLOGY DR FRAGOSO IN 2-3 WEEKS , PLEASE CALL OFFICE FOR APPOINTMENT CONTINUE TO FOLLOW UP WITH YOU PSYCHIATRIST OUT PATIENT NON DISPLACED FIFTH METATARSAL FRACTURE ON LEFT ; WEAR BOOT at all times while up and weightbearing. FOLLOW UP WITH ORTHOPEDICS DR MATHEW AT OUT PATIENT IN 3-4 WEEKS Current Hospital Diet Patient's current hospital diet: AHA Diet (Heart Healthy), Renal Diet Discharge Diet Recommended Diet: Low Potassium Diet (2g K) Pending Studies Studies pending at discharge: yes List of pending studies: LAB WORK BASIC METABOLIC PANEL ON Sunday12/04/16 Laboratory Results Hemoglobin A1c Test 11/28/16 05:30 Range/Units Estimated Average Glucose 108 mg/dl Hemoglobin A1c 5.4 4.5-5.6 % Medical Emergencies . Who to Call and When: Medical Emergencies: If at any time you feel your situation is an emergency, please call 911 immediately. . Non-Emergent Contact Non-Emergency issues call your: Primary Care Provider . . "Provider Documentation" section prepared by Ophelia Grayson. . VTE Core Measure Inpt VTE Proph given/why not?: Unfractionated heparin SQ
[2016-12-01] MEDS ORDERED: LVQ750 PO (19:56)
--- NOTE | 2016-12-01 20:13 | Discharge Summary ---
Discharge Summary Date of Service December 01, 2016. Discharge Summary Admission Date: Nov 25, 2016 at 18:55 Discharge Date: December 01, 2016 Discharge Disposition: Home Principal Diagnosis: ACUTE RENAL FAILURE /UTI/LEFT 5TH METATARSAL FRACTURE Procedures: Renal USG : 1. No hydronephrosis. 2. Increased renal echogenicity suggestive of medical renal disease. Xray of FOOT : IMPRESSION: Nondisplaced fracture at the base of the fifth metatarsal consistent with a Sanford fracture. No fractures within the left ankle. Consultations: UROLOGY NEPHROLOGY PSYCHIATRY ORTHOPEDICS DR PETTY Medication Reconciliation New Medications: Levofloxacin (Levofloxacin) 750 Mg Tab 750 MG PO DAILY for 1 Day, #1 TAB TAKE IT ON Sunday12/02/16 Continued Medications: Acetamin/Butalbital/Caffeine (Fioricet) 1 Ea Tab 1 TAB PO Q6H PRN for Headache, TAB Albuterol Sulfate (Proventil Hfa) 108 Mcg/Act Aer 2 PUFFS INH Q4H PRN for ob/wheeze Alprazolam (Xanax) 1 Mg Tab 1 MG PO BID PRN for Anxiety Amphetamine-Dextroamphetamine 20MG (Adderall 20MG) 1 Tab Tab 20 MG PO BID, TAB Ascorbic Acid (Vitamin C) 1,000 Mg Tab 1 TAB PO DAILY Cyclobenzaprine Hcl (Flexeril) 10 Mg Tab 10 MG PO TID PRN for Muscle Spasms, #21 TAB Duloxetine HCl (Duloxetine HCl) 60 Mg Cap 60 MG PO HS Epinephrine (Epipen 2-Jorge) 0.3 Mg Inj 0.3 MG IM UD PRN for ALLERGIC REACTION PLACE ORANGE END AGAINST THE MIDDLE OF OUTER THIGH, PRESS FIRMLY AND HOLD IN PLACE FOR 10 SECONDS. Gabapentin (Gabapentin) 300 Mg Cap 600 MG PO BID Nortriptyline Hcl (Pamelor) 25 Mg Cap 3 CAP PO HS Ondansetron Hcl (Zofran) 8 Mg Tab 8 MG PO TID PRN for Nausea, TAB S-Adenosylmethionine (Giorgio-E) 200 Mg Tab 1 TAB PO DAILY Tramadol HCl (Tramadol HCl) 50 Mg Tab 50 MG PO Q6 PRN for Pain, #40 Referrals At Discharge Follow up Referrals: Orthopedics Referral - Within 6 Weeks with Naresh Petty M.D. Urologist Referral - Please Call For Appointment with Eric Fragoso MD, Urology Admission Information HPI (per Admitting provider): Patient seen and examined. 61 year old female with PMHx of tobacco abuse, depression, chronic back pain, and currently being workedup for a movement disorder presents to the ED complaining of left ankle pain following a fall this morning. Patient reports that her her "muscle twitching" was worse than normal this morning. She states she was trying to get a glass of water but spilled it all over the floor d/t uncontrolled movements. She states she then rolled her left ankle when she step in the water and fell to the ground. She tried to use her cell phone to call her son to help her but had difficulty using the phone because of her muscle twitching. She then realized that she couldn't remember her son's phone number to dial it. She states she eventually got a hold of him and he brought her to the ED for further evaluation. He reports that the patient is very different from baseline and having issues with word finding and confusion that she has never had before. Patient also complaining of a cough and congestion. She states she is unable to cough up sputum but she feels it is there. She feels a little more SOB than baseline. She states she has been taking Mucinex for this. She also reports urinary issues. She states d/t her chronic back pain when she has back pain she has urinary retention. She states she has not urinated since yesterday. She states when she does go it is dark urine. She reports that she takes Ibuprofen 600mg TID for the back pain. She denies fevers, chills, chest pain, nausea, vomiting, diarrhea, calf pain and edema. She denies head trauma and LOC. She is currently seeing Dr. Greco to be worked up for a movement disorder and had an EMG as an outpatient. She states she did not take her medications today. In the ED patient was initially hypertensive but BP has normalized with out intervention. She is hypoxic on RA. She has a WBC count of 15K, and her crea is 6.3. She also has a left 5th metatarsal fracture. She will be admitted for further workup and treatment. Physical Exam (per Admitting): General Appearance: + pertinent finding (WD/WN 61 year old female lying in bed in NAD with son at bedside ) Head: normocephalic, atraumatic Eyes: PERRL, EOMI, sclerae normal ENT: hearing grossly normal, pharynx normal Neck: supple, no JVD Respiratory/Chest: chest non-tender, no respiratory distress, no accessory muscle use, + rhonchi, + wheezing, + pertinent finding (coarse breath sounds throughout ) Cardiovascular: regular rate, rhythm, no edema, no gallop, no JVD, no murmur , normal peripheral pulses Abdomen/GI: normal bowel sounds, non tender, soft Back: normal inspection, no CVA tenderness Extremities/Musculoskelatal: no calf tenderness, normal capillary refill, no pedal edema Neurologic/Psych: + pertinent finding (A&Ox3, some word finding and recall issues,tangential speech, tremor noted, appears restless possibly some involuntary movements ) Skin: normal color, warm/dry, no rash Lymphatic: no adenopathy Hospital Course 61 year old female with history of smoking, chronic back pain, mood disorder presenting with left foot pain. ACUTE RENAL FAILURE resolved ATN possible due to NSAID induced patient reports chronic NSAID use 600mg TID regularly - renal us: 1. No hydronephrosis. 2. Increased renal echogenicity suggestive of medical renal disease. - crea improved 6.3 to 4.5-> 2.8 -> 2 -> 1.4 -> 1.3 non oliguric - IV D/ghazal pt is counselled to avoid NSAID's in future for pain renally dose medications appreciate Nephro consult out pt repeat labs /BMP next week HYPERKALEMIA due to above pt is counselled for low K diet repeat PRP on Sunday12/04/16 UTI : hx of recurrent UTI urine culture Enterococci sensitive to Levaquin complete PO Levaquin dose for total 7 days URINARY RETENTION chronic hx of poor bladder emptying , poor bladder sensation , recurrent UTI pt was seen by Urologic associates in past as scheduled to have out pt cystoscopy -which pt could not follow in past Urology recommended at home intermittent self straight cath if needed -Urology consulted - appreciate input Tirado D/ghazal pt able to void spontaneously with minimum post void residual out pt urology eval ACUTE HYPOXIC RESPIRATORY FAILURE, LIKELY FROM ACUTE COPD EXACERBATION FROM ACUTE BRONCHITIS/PNEUMONIA resolved, on room air - repeat cxr: 1. Interval development of right midlung opacity. This favors atelectasis although pneumonia could appear similar. 2. Mild asymmetric left lung opacity. This could be due to patient rotation although airspace disease could appear similar. - on Levaquin Day # 6 complete 7 days course levalbuterol/ipratropium neb tx PRN EPISODE OF ALTERED MENTAL STATUS - DELIRIUM, Resolved - happened 11/26/16 -CT head negative - multifactorial: secondary to hypoxia, uremia, infection, polypharmacy and other etiologies from Psych meds in the setting of Acute renal failure? held all Psych meds, other meds that may cause delirium, Psych consulted: recommend to resume Cymbalta, Nortryptiline, appreciate the consult from Underlying Infection- UTI Proteus, Pneumonia: blood cultures pending , on Levaquin Day 2 - repeat CT head: negative ammonia: negative LEFT 5TH METATARSAL FRACTURE - continue with Boot - no surgery, casting recommended - ortho consulted, appreciate the consult use boot while ambulating conserving management only out pt Ortho follow up MOVEMENT DISORDER -Follows with Dr. Greco -neurology -fall precautions -had recent EMGs: (+) polyneuropathy - possible worsening due to acute renal failure on multiple medications - Neuro consulted, recommend MRI Cervical and Lumbar spine when stable ordered for b12, rpr, lyme, a1c, esr, ck, katya, crp - no abnormal movements observed today - monitor CHRONIC BACK PAIN -usually on Flexeril, Oxycodone, Tramadol, Gabapentin - held above secondary to acute delirium - Tramadol resumed DYSPHAGIA Speech Therapy eval requested -recommend cont regular diet MOOD DISORDER -usually on Cymbalta, Nortriptyline, Adderall, Xanax - management as noted above TOBACCO ABUSE -Cessation counseling given DVT PROPHYLAXIS: Sq heparin CODE STATUS: FULL CODE DISPOSITION referral made to [facility] , accepted -pending insurance Auth pt wants to go to home , activity at baseline does not want to wait all weekend for insurance approval on Sunday , as she definitely feels much better already Has multiple walkers at home managed to be OOB and walk to bathroom with boot on left foot Son present at beside comfortable that pt will return home on discharge Discharged home today , son will provide transport Medicine follow up with Dr Stokes at [facility] Total time spent on discharge = 35MINS This includes examination of the patient, discharge planning, medication reconciliation, and communication with other providers. Discharge Instructions Discharge Instructions Date of Service December 01, 2016. Admission Reason for Admission: Acute Renal Failure; Hypoxia Discharge Discharge Diagnosis / Problem: ACUTE RENAL FAILURE /UTI/LEFT 5TH METATARSAL FRACTURE Discharge Goals Goal(s): Improve disease control, Therapeutic intervention Activity Recommendations Activity Limitations: resume your previous activity . Instructions / Follow-Up Instructions / Follow-Up HOSPITAL FOLLOW UP WITH DR STOKES IN A WEEK , OFFICE WILL CALL WITH APPOINTMENT DO NOT TAKE ASPIRIN , ALEVE, MOTRIN , IBUPROFEN , NAPROXEN , WILL CAUSE MORE DAMAGE TO YOUR KIDNEY PLEASE LIMIT SALT IN YOUR DIET NEED TO BE ON LOW POTASSIUM DIET : LOW POTASSIUM FRUITS /VEGETABLES : APPLES , GRAPES, CHERRIES , WATERMELON , ASPARAGUS , BROCCOLI LAB WORK ; BASIC METABOLIC PANEL ON Sunday12/04/[address] FRAGOSO IN 2-3 WEEKS , PLEASE CALL OFFICE FOR APPOINTMENT CONTINUE TO FOLLOW UP WITH YOU PSYCHIATRIST OUT PATIENT NON DISPLACED FIFTH METATARSAL FRACTURE ON LEFT ; WEAR BOOT at all times while up and weightbearing. FOLLOW UP WITH ORTHOPEDICS DR PETTY AT OUT PATIENT IN 3-4 WEEKS Current Hospital Diet Patient's current hospital diet: AHA Diet (Heart Healthy), Renal Diet Discharge Diet Recommended Diet: Low Potassium Diet (2g K) Pending Studies Studies pending at discharge: yes List of pending studies: LAB WORK BASIC METABOLIC PANEL ON Sunday12/04/16 Laboratory Results Hemoglobin A1c Test 11/28/16 05:30 Range/Units Estimated Average Glucose 108 mg/dl Hemoglobin A1c 5.4 4.5-5.6 % Medical Emergencies . Who to Call and When: Medical Emergencies: If at any time you feel your situation is an emergency, please call 911 immediately. . Non-Emergent Contact Non-Emergency issues call your: Primary Care Provider . . "Provider Documentation" section prepared by Ophelia Grayson. . VTE Core Measure Inpt VTE Proph given/why not?: Unfractionated heparin SQ Additional Copies To Thomas Stokes M.D. Claudia Starks I., DO
[2016-12-01 20:28] VITALS: BP 155/89; PULSE 80; TEMP 36.7; O2SAT 93
[2017-01-02] MEDS ORDERED: RXC/5 PO (14:25)
== END 2016-12-01 20:30 | disposition home or self-care (01) | DRG 562 ==
LOC: ENRESERV → ENRESERVDT → CANRESERV → ENRESERVTM → C.EDB 14:02 → C.2T 18:55 → CANBEDREQ 11-26 11:36 → C.MS4W 11-29 16:23
PROVIDERS: ADMIT Hospitalist; ATTEND Hospitalist
DX: S92.355A Nondisplaced fracture of fifth metatarsal bone, left foot, initial encounter for closed fracture (principal); N17.0 Acute kidney failure with tubular necrosis; J96.01 Acute respiratory failure with hypoxia; J18.9 Pneumonia, unspecified organism; N39.0 Urinary tract infection, site not specified; J44.1 Chronic obstructive pulmonary disease with (acute) exacerbation; E87.0 Hyperosmolality and hypernatremia; J44.0 Chronic obstructive pulmonary disease with (acute) lower respiratory infection; M62.838 Other muscle spasm; D72.829 Elevated white blood cell count, unspecified; F32.9 Major depressive disorder, single episode, unspecified; G89.29 Other chronic pain; R33.9 Retention of urine, unspecified; K57.30 Diverticulosis of large intestine without perforation or abscess without bleeding; M48.06 Spinal stenosis, lumbar region; M54.16 Radiculopathy, lumbar region; G62.9 Polyneuropathy, unspecified; R41.0 Disorientation, unspecified; G43.909 Migraine, unspecified, not intractable, without status migrainosus; B95.2 Enterococcus as the cause of diseases classified elsewhere; F41.1 Generalized anxiety disorder; F90.9 Attention-deficit hyperactivity disorder, unspecified type; J20.9 Acute bronchitis, unspecified; Z90.49 Acquired absence of other specified parts of digestive tract; Z79.899 Other long term (current) drug therapy; Z79.1 Long term (current) use of non-steroidal anti-inflammatories (NSAID); Z88.8 Allergy status to other drugs, medicaments and biological substances; Z88.0 Allergy status to penicillin; Z86.010 Personal history of colon polyps; W01.0XXA Fall on same level from slipping, tripping and stumbling without subsequent striking against object, initial encounter

== ENCOUNTER → 2017-01-03 | Day surgery (SDC) | payer OTHER ==
[2017-01-02 14:25] VITALS: Ht 160 cm; Wt 59.1 kg
[~2017-01-03] VITALS: Ht 160 cm; Wt 59.1 kg
[~2017-01-03] MED LIST changes: -ALBU1AER9 INH; +ALBUAER INH; +AMPH20TA2 PO; -AMPH30TA2 PO; -DOXY100C2 PO; +LIDOCAINE HCL 1% MPF 5 ML VIAL ONE; +ONDA8TAB6 PO; -PRED20TA PO; +RXC/5 PO; +SODIUM CHLORIDE 0.9% INJ 10 ML VIAL ONE; -VLM5CL PO
--- NOTE | 2017-01-03 12:55 | History & Physical Bridge - SC ---
H&P Re-Evaluation Bridge Note: I have examined the patient, reviewed the History & Physical and in the interval since the performance of the History & Physical I have noted the following changes of clinical significance: No changes noted
[2017-01-03 13:20] VITALS: TEMP 36.5
--- NOTE | 2017-01-03 13:28 | Discharge Instructions ---
Discharge Instructions Date of Service Jan 03, 2017. Visit Reason for Visit: Lumbar Radiculopathy Discharge Discharge Diagnosis / Problem: bilateral leg pain Discharge Goals Goal(s): Decrease discomfort, Improve function Activity Recommendations Activity Limitations: resume your previous activity Anesthesia . Post Anesthesia Instructions: If you have had General Anesthesia or IV Sedation: * Do not drive today. * Resume driving when surgeon permits. * Do not make important decisions or sign legal documents today. * Call surgeon for: 1. Temperature elevations greater than 101 degrees F. 2. Uncontrollable pain. 3. Excessive bleeding. 4. Persistent nausea and vomiting. 5. Medication intolerance (nausea, vomiting or rash). * For nausea and vomiting use only clear liquids such as: tea, soda, bouillon until nausea subsides, then gradually increase diet as tolerated. * If you have any concerns or questions, call your surgeon's office. If physician is unavailable and it is an emergency, call 911 or go to the nearest emergency room. . Diet Recommendations Recommended Home Diet: resume previous diet Procedures Procedures Performed: CAUDAL EPIDURAL STEROID INJECTION Pending Studies Studies pending at discharge: no Medical Emergencies . Who to Call and When: Medical Emergencies: If at any time you feel your situation is an emergency, please call 911 immediately. . Non-Emergent Contact Non-Emergency issues call your: Specialist . . "Provider Documentation" section prepared by Mikhail Rice. .
[2017-01-03 13:35] VITALS: BP 102/65; PULSE 80; O2SAT 96
--- NOTE | 2017-01-03 14:34 | OPERATIVE REPORT ---
DATE OF OPERATION: 01/03/2017 PREOPERATIVE DIAGNOSES: Post-laminectomy syndrome, spondylolisthesis of the lumbar region with chronic lower extremity radiculopathy with associated weakness. POSTOPERATIVE DIAGNOSES: Same. PROCEDURE: Caudal epidural steroid injection under fluoroscopic guidance. INDICATIONS: The patient is a 61-year-old female who describes a classic radiating pain from the low back into the legs, at times it so severe it causes weakness and it limits her functionally. She has responded favorably to epidural steroid injections in the past via caudal approach given her previous surgery and she presents today for an epidural injection to provide her with radicular pain relief. PHYSICAL EXAMINATION: Pleasant female seated comfortably. She is without any focal weakness. She has difficulty ambulating often partially stumbling as she ambulates. She is without any focal weakness and grossly intact sensation. CONSENT: Verbal and written consent was obtained from the patient. Risks and benefits were reviewed. Risks include but are not limited to epidural abscess, epidural hematoma, allergic reaction, dural puncture. The patient wishes to proceed. DESCRIPTION OF PROCEDURE: The patient was taken back to the special procedures room of the [facility] where she was maintained in a prone position. Backside was cleansed with Betadine x3 and a dry sterile dressing was applied. Fluoroscope was used to identify the sacral hiatus from a lateral view and the overlying skin was anesthetized with 3 mL of lidocaine 1% with a 25 gauge 1.5-inch needle. A 25 gauge 3.5 inch spinal needle was then directed into the sacral canal and was advanced under lateral fluoroscopic guidance. She then underwent injection after negative aspiration of 40 mg of Depo-Medrol and 4 mL of preservative-free sodium chloride. Injection was well tolerated. DISPOSITION: 1. The patient is taken out into the discharge recovery area where she will be discharged home once discharge criteria have been met. 2. Follow up in the [facility] office in 4 weeks. I attest to the content of the Intraoperative Record and any orders documented therein. Any exception s are noted below.
== END | disposition home or self-care (01) ==
LOC: X.SURG 12:13
PROVIDERS: ATTEND Physical Medicine & Rehabilitation
DX: M96.1 Postlaminectomy syndrome, not elsewhere classified (principal); M43.16 Spondylolisthesis, lumbar region; M54.16 Radiculopathy, lumbar region

== ENCOUNTER → 2017-04-16 | Outpatient (CLI) | payer OTHER ==
[~2017-04-16] MED LIST changes: -LIDOCAINE HCL 1% MPF 5 ML VIAL ONE; -SODIUM CHLORIDE 0.9% INJ 10 ML VIAL ONE
== END | disposition home or self-care (01) ==
LOC: C.LABSPEC 17:31
PROVIDERS: ATTEND Nurse Practitioner Adult Health
DX: N39.0 Urinary tract infection, site not specified (principal); R33.9 Retention of urine, unspecified

== ENCOUNTER → 2017-04-25 | Outpatient (CLI) | payer OTHER ==
[2017-04-25 17:54] LABS: BLOOD UREA NITROGEN 37 mg/dl (7-18); BUN/CREATININE RATIO 15.9 (10-20); CALCIUM 9.1 mg/dl (8.5-10.1); CARBON DIOXIDE 19 mmol/L (21-32); CHLORIDE 111 mmol/L (98-107); GLUCOSE 84 mg/dl (70-99); POTASSIUM 4.4 mmol/L (3.5-5.1); SODIUM 140 mmol/L (136-145)
== END | disposition home or self-care (01) ==
LOC: C.LAB1850 16:44
PROVIDERS: ATTEND Internal Medicine Nephrology
DX: N31.9 Neuromuscular dysfunction of bladder, unspecified (principal)

== ENCOUNTER → 2017-05-01 | Outpatient (CLI) | payer OTHER ==
[2017-05-01 16:00] LABS: BLOOD UREA NITROGEN 22 mg/dl (7-18); BUN/CREATININE RATIO 15.9 (10-20); CALCIUM 8.2 mg/dl (8.5-10.1); CARBON DIOXIDE 20 mmol/L (21-32); CHLORIDE 110 mmol/L (98-107); GLUCOSE 135 mg/dl (70-99); PHOSPHORUS 3.4 mg/dl (2.5-4.9); POTASSIUM 3.3 mmol/L (3.5-5.1); SODIUM 141 mmol/L (136-145)
== END | disposition home or self-care (01) ==
LOC: C.LAB1850 14:35
PROVIDERS: ATTEND Internal Medicine Nephrology
DX: N31.9 Neuromuscular dysfunction of bladder, unspecified (principal); N17.9 Acute kidney failure, unspecified

== ENCOUNTER → 2017-07-02 | Outpatient (CLI) | payer OTHER ==
--- NOTE | 2017-07-02 15:10 | DIAGNOSTIC IMAGING REPORT ---
RENAL ULTRASOUND CLINICAL HISTORY: Neurogenic bladder. COMPARISON STUDY: Renal ultrasound November 26, 2016. TECHNIQUE: Sonography of the kidneys and the urinary bladder was performed. FINDINGS: The right kidney measures 9.4 cm in maximal dimension and the left measures 9.3 cm. There is no hydronephrosis. Renal size and cortical thickness are normal. Increased renal echogenicity is again noted. Both ureteral jets were identified. No renal calculi or masses are identified by sonography. IMPRESSION: 1. No hydronephrosis. 2. Increased renal echogenicity, similar to prior exam. Electronically signed by: Nitin Ho M.D. 07/02/2017 3:09 PM Dictated Date/Time: 07/02/2017 3:06 PM
== END | disposition home or self-care (01) ==
LOC: C.ULTR 14:27
PROVIDERS: ATTEND Urology
DX: N31.9 Neuromuscular dysfunction of bladder, unspecified (principal)

== ENCOUNTER → 2017-07-02 | Outpatient (CLI) | payer OTHER ==
[2017-07-02 17:28] LABS: BLOOD UREA NITROGEN 18 mg/dl (7-18); BUN/CREATININE RATIO 17.4 (10-20); CALCIUM 8.8 mg/dl (8.5-10.1); CARBON DIOXIDE 24 mmol/L (21-32); CHLORIDE 105 mmol/L (98-107); CREATININE 1.06 mg/dl (0.60-1.20); GLUCOSE 92 mg/dl (70-99); PHOSPHORUS 2.3 mg/dl (2.5-4.9); POTASSIUM 3.9 mmol/L (3.5-5.1); SODIUM 136 mmol/L (136-145)
== END | disposition home or self-care (01) ==
LOC: C.LAB1850 16:12
PROVIDERS: ATTEND Internal Medicine Nephrology
DX: N31.9 Neuromuscular dysfunction of bladder, unspecified (principal); N17.9 Acute kidney failure, unspecified

== ENCOUNTER → 2017-11-27 | Outpatient (CLI) | payer OTHER ==
[~2017-11-27] MED LIST changes: +GABA-1219 PO; -GABA1CAP4 PO; +ONDA-170 PO; -ONDA8TAB6 PO
[2017-11-27 18:05] LABS: BLOOD UREA NITROGEN 33 mg/dl (7-18); CREATININE 1.76 mg/dl (0.60-1.20)
== END | disposition home or self-care (01) ==
LOC: C.LAB1850 17:14
PROVIDERS: ATTEND Psychiatry & Neurology Neurology
DX: M54.17 Radiculopathy, lumbosacral region (principal); N31.9 Neuromuscular dysfunction of bladder, unspecified; N39.0 Urinary tract infection, site not specified; N17.9 Acute kidney failure, unspecified

== ENCOUNTER → 2017-12-13 | Outpatient (CLI) | payer OTHER ==
--- NOTE | 2017-12-13 15:09 | DIAGNOSTIC IMAGING REPORT ---
LUMBAR SPINE CT CT DOSE: 435.48 mGy.cm HISTORY: M54.17 Lumbosacral radiculopathyPlease push images to [facility] TECHNIQUE: Multiaxial CT images of the lumbar spine were performed and reformatted in the sagittal and coronal plane without the use of contrast. A dose lowering technique was utilized adhering to the principles of ALARA. COMPARISON: Lumbar spine myelogram 01/07/2007. Lumbar spine radiograph 08/20/2015. FINDINGS: Mild levoscoliosis of the lumbar spine. No fractures within the lumbar spine. Grade I anterolisthesis of L3 on L4 and L4-L5. There is also 4 mm of retrolisthesis of L1 on L2. Posterior decompression and fusion from L3 through L5 with pedicle screws and rods. Prior resection of the right L5 pedicle screw. The remaining hardware appears intact. Severe disc space narrowing throughout the lumbar spine has progressed compared the prior study. Endplate sclerosis and erosions at the T12-L1 level with a small amount of vacuum phenomenon. This favors long-standing degenerative change. No paravertebral edema identified. Moderate to advanced facet degenerative changes within the upper lumbar spine. L3 through the S1 facets are fused. Evaluation of the central canal is suboptimal due to the CT technique. T12-L1: Mild central canal narrowing due to a broad-based posterior disc bulge. There is also moderate left and mild right neural foraminal narrowing. L1-L2: Mild to moderate central canal narrowing due to the retrolisthesis and ligamentum and facet hypertrophy which has progressed. There is also severe bilateral neural foraminal narrowing. This is similar to the prior study. L2-L3: Mild to moderate central canal narrowing due to the broad-based posterior disc osteophyte complex and ligamentum and facet hypertrophy. Moderate right and mild left neural foraminal narrowing. L3-L4: No significant central canal narrowing due to the posterior decompression. There is mild right neural foraminal narrowing. L4-L5: No significant central canal narrowing due to the posterior decompression. Mild right neural foraminal narrowing. L5-S1: No significant central canal narrowing due to the posterior decompression. Mild left-sided neural foraminal narrowing. IMPRESSION: 1. Posterior decompression and fusion from L3 through L5 as described above. No significant central canal narrowing at this level due to the prior laminectomies. 2. Advanced degenerative disc disease within the upper lumbar spine as described above which has progressed in the interval. This is most pronounced at the T12-L1 and L1-L2 levels. 3. No fractures identified within the lumbar spine. Electronically signed by: Ezio Taylor M.D. 12/13/2017 3:08 PM Dictated Date/Time: 12/13/2017 2:55 PM
== END | disposition home or self-care (01) ==
LOC: C.CTS 14:23
PROVIDERS: ATTEND Psychiatry & Neurology Neurology
DX: M54.17 Radiculopathy, lumbosacral region (principal); M51.35 Other intervertebral disc degeneration, thoracolumbar region